=== PATIENT | female | born 1925 | race Caucasian/White ===

== ENCOUNTER 2017-05-14 15:35 | Inpatient (IN) | payer MEDICARE ==
[2017-05-14] MEDS ORDERED: SODIUM CHLORIDE 0.9% 500 ML IV STA (15:51)
[2017-05-14] MEDS ORDERED: MORPHINE SULFATE 4 MG/ML SYRINGE IV STA (15:51)
[2017-05-14] MEDS ORDERED: ONDANSETRON 4 MG/2 ML VIAL IVP STA (15:51)
[2017-05-14] MEDS ORDERED: SODIUM CHLORIDE 0.9% 1,000 ML IV STA (15:51)
--- NOTE | 2017-05-14 16:05 | ED ---
General Adult HPI - General Chief complaint: Altered Mental Status Stated complaint: Arrhythmia Time Seen by Provider: 05/14/17 15:44 Source: EMS, RN notes reviewed, old records reviewed Mode of arrival: EMS Limitations: altered mental status - History of Present Illness Initial comments: This is a 89-year-old female ER for evaluation. Patient has a for evaluation of altered mental status episode of near syncope and decreased level of responsiveness. Patient was started new blood pressure medication today clonidine. Patient is poor historian to what happened to her earlier today but EMS states patient was diaphoretic with abdominal pain upon arrival. Patient is currently complaining of pain in her back. Patient states she was feeling normal last night, she has nauseous and has vomited - Related Data Home Medications Medication Instructions Recorded Confirmed Ascorbic Acid [Vitamin C] 500 mg PO DAILY 05/14/17 05/14/17 Calcium/Magnesium/Zinc 1 tab PO DAILY 05/14/17 05/14/17 [Qmmigwy-Rynuphmdm-Ffhn Tablet] Clopidogrel Bisulfate [Plavix] 75 mg PO DAILY 05/14/17 05/14/17 Hydrochlorothiazide 12.5 mg PO DAILY 05/14/17 05/14/17 Lisinopril 40 mg PO DAILY 05/14/17 05/14/17 Metoprolol Tartrate [Lopressor] 25 mg PO BID 05/14/17 05/14/17 Pantoprazole Sodium [Protonix] 40 mg PO DAILY 05/14/17 05/14/17 Papaya [Papaya Enzyme] 1 tab PO HS 05/14/17 05/14/17 Vit C/E/Zn/Coppr/Lutein/Zeaxan 1 cap PO DAILY 05/14/17 05/14/17 [Preservision Areds 2 Softgel] cloNIDine HCL [Catapres] 0.1 mg PO BID 05/14/17 05/14/17 Allergies Allergy/AdvReac Type Severity Reaction Status Date / Time No Known Allergies Allergy Verified 05/14/17 16:41 Review of Systems ROS Statement: Those systems with pertinent positive or pertinent negative responses have been documented in the HPI. ROS Other: All systems not noted in ROS Statement are negative. Past Medical History Past Medical History: GERD/Reflux, Hypertension History of Any Multi-Drug Resistant Organisms: None Reported Past Surgical History: Hysterectomy, Orthopedic Surgery Past Psychological History: No Psychological Hx Reported Smoking Status: Never smoker Past Alcohol Use History: None Reported Past Drug Use History: None Reported General Exam Limitations: altered mental status General appearance: alert, in no apparent distress Head exam: Present: atraumatic, normocephalic, normal inspection Eye exam: Present: normal appearance, PERRL, EOMI. Absent: scleral icterus, conjunctival injection, periorbital swelling ENT exam: Present: normal exam, mucous membranes moist Neck exam: Present: normal inspection. Absent: tenderness, meningismus, lymphadenopathy Respiratory exam: Present: normal lung sounds bilaterally. Absent: respiratory distress, wheezes, rales, rhonchi, stridor Cardiovascular Exam: Present: normal rhythm, bradycardia, normal heart sounds. Absent: systolic murmur, diastolic murmur, rubs, gallop, clicks GI/Abdominal exam: Present: soft, normal bowel sounds. Absent: distended, tenderness, guarding, rebound, rigid Extremities exam: Present: normal inspection, full ROM, normal capillary refill. Absent: tenderness, pedal edema, joint swelling, calf tenderness Back exam: Present: normal inspection Neurological exam: Present: alert, oriented X3, CN II-XII intact Psychiatric exam: Present: normal affect, normal mood Skin exam: Present: warm, dry, intact, normal color. Absent: rash Course Vital Signs 05/14/17 05/14/17 15:38 16:50 Temperature 97 F L Pulse Rate 52 L 52 L Respiratory 12 18 Rate Blood Pressure 170/74 198/84 O2 Sat by Pulse 95 99 Oximetry - Reevaluation(s) Reevaluation #1: 05/14/17 19:00 Patient is without syncope borderline here in the emergency room, feeling better with IV hydration EKG Findings - EKG Comments: EKG Findings:: EKG shows sinus bradycardia rate of 56, pO2 92, QRS 170, QTC 494 Medical Decision Making - Medical Decision Making 89 female in the ER for evaluation. Patient comes in for ER for reevaluation status post syncopal event after elevated blood pressure. Patient has a elevated blood pressure all did take clonidine which is a new medication for her and passed out. Patient this time is relatively symptomatic mildly dehydrated with urinary tract infection, we will that for the above. - Lab Data Result diagrams: 05/14/17 15:58 05/14/17 15:58 Lab Results 09/27/17 09/27/17 09/27/17 Range/Units 15:58 15:58 15:58 WBC 6.2 (3.8-10.6) k/uL RBC 4.13 (3.80-5.40) m/uL Hgb 11.8 (11.4-16.0) gm/dL Hct 35.4 (34.0-46.0) % MCV 85.9 (80.0-100.0) fL MCH 28.6 (25.0-35.0) pg MCHC 33.3 (31.0-37.0) g/dL RDW 14.3 (11.5-15.5) % Plt Count 211 (150-450) k/uL Neutrophils % 52 % Lymphocytes % 33 % Monocytes % 10 % Eosinophils % 2 % Basophils % 0 % Neutrophils # 3.2 (1.3-7.7) k/uL Lymphocytes # 2.0 (1.0-4.8) k/uL Monocytes # 0.6 (0-1.0) k/uL Eosinophils # 0.1 (0-0.7) k/uL Basophils # 0.0 (0-0.2) k/uL PT (9.0-12.0) sec INR (<1.2) APTT (22.0-30.0) sec D-Dimer (<0.60) mg/L FEU Sodium 127 L (137-145) mmol/L Potassium 3.7 (3.5-5.1) mmol/L Chloride 93 L (98-107) mmol/L Carbon Dioxide 24 (22-30) mmol/L Anion Gap 10 mmol/L BUN 14 (7-17) mg/dL Creatinine 0.75 (0.52-1.04) mg/dL Est GFR (MDRD) Af Amer >60 (>60 ml/min/1.73 sqM) Est GFR (MDRD) Non-Af >60 (>60 ml/min/1.73 sqM) Glucose 109 H (74-99) mg/dL Plasma Lactic Acid Ash (0.7-2.0) mmol/L Calcium 9.0 (8.4-10.2) mg/dL Phosphorus 3.6 (2.5-4.5) mg/dL Magnesium 1.8 (1.6-2.3) mg/dL Total Bilirubin 0.7 (0.2-1.3) mg/dL AST 25 (14-36) U/L ALT 24 (9-52) U/L Alkaline Phosphatase 42 (38-126) U/L Total Creatine Kinase 71 (30-135) U/L CK-MB (CK-2) 1.8 (0.0-2.4) ng/mL CK-MB (CK-2) Rel Index 2.5 Troponin I <0.012 (0.000-0.034) ng/mL NT-Pro-B Natriuret Pep pg/mL Total Protein 6.6 (6.3-8.2) g/dL Albumin 4.0 (3.5-5.0) g/dL Lipase 23 (23-300) U/L Urine Color Urine Appearance (Clear) Urine pH (5.0-8.0) Ur Specific Drummond (1.001-1.035) Urine Protein (Negative) Urine Glucose (UA) (Negative) Urine Ketones (Negative) Urine Blood (Negative) Urine Nitrite (Negative) Urine Bilirubin (Negative) Urine Urobilinogen (<2.0) mg/dL Ur Leukocyte Esterase (Negative) Urine RBC (0-5) /hpf Urine WBC (0-5) /hpf Ur Squamous Epith Cells (0-4) /hpf Amorphous Sediment (None) /hpf Hyaline Casts (0-2) /lpf 05/14/17 05/14/17 05/14/17 Range/Units 15:58 15:58 15:58 WBC (3.8-10.6) k/uL RBC (3.80-5.40) m/uL Hgb (11.4-16.0) gm/dL Hct (34.0-46.0) % MCV (80.0-100.0) fL MCH (25.0-35.0) pg MCHC (31.0-37.0) g/dL RDW (11.5-15.5) % Plt Count (150-450) k/uL Neutrophils % % Lymphocytes % % Monocytes % % Eosinophils % % Basophils % % Neutrophils # (1.3-7.7) k/uL Lymphocytes # (1.0-4.8) k/uL Monocytes # (0-1.0) k/uL Eosinophils # (0-0.7) k/uL Basophils # (0-0.2) k/uL PT 11.6 (9.0-12.0) sec INR 1.2 H (<1.2) APTT 25.2 (22.0-30.0) sec D-Dimer 0.27 (<0.60) mg/L FEU Sodium (137-145) mmol/L Potassium (3.5-5.1) mmol/L Chloride (98-107) mmol/L Carbon Dioxide (22-30) mmol/L Anion Gap mmol/L BUN (7-17) mg/dL Creatinine (0.52-1.04) mg/dL Est GFR (MDRD) Af Amer (>60 ml/min/1.73 sqM) Est GFR (MDRD) Non-Af (>60 ml/min/1.73 sqM) Glucose (74-99) mg/dL Plasma Lactic Acid Ash 1.6 (0.7-2.0) mmol/L Calcium (8.4-10.2) mg/dL Phosphorus (2.5-4.5) mg/dL Magnesium (1.6-2.3) mg/dL Total Bilirubin (0.2-1.3) mg/dL AST (14-36) U/L ALT (9-52) U/L Alkaline Phosphatase (38-126) U/L Total Creatine Kinase (30-135) U/L CK-MB (CK-2) (0.0-2.4) ng/mL CK-MB (CK-2) Rel Index Troponin I (0.000-0.034) ng/mL NT-Pro-B Natriuret Pep 811 pg/mL Total Protein (6.3-8.2) g/dL Albumin (3.5-5.0) g/dL Lipase (23-300) U/L Urine Color Urine Appearance (Clear) Urine pH (5.0-8.0) Ur Specific Drummond (1.001-1.035) Urine Protein (Negative) Urine Glucose (UA) (Negative) Urine Ketones (Negative) Urine Blood (Negative) Urine Nitrite (Negative) Urine Bilirubin (Negative) Urine Urobilinogen (<2.0) mg/dL Ur Leukocyte Esterase (Negative) Urine RBC (0-5) /hpf Urine WBC (0-5) /hpf Ur Squamous Epith Cells (0-4) /hpf Amorphous Sediment (None) /hpf Hyaline Casts (0-2) /lpf 05/14/17 Range/Units 15:58 WBC (3.8-10.6) k/uL RBC (3.80-5.40) m/uL Hgb (11.4-16.0) gm/dL Hct (34.0-46.0) % MCV (80.0-100.0) fL MCH (25.0-35.0) pg MCHC (31.0-37.0) g/dL RDW (11.5-15.5) % Plt Count (150-450) k/uL Neutrophils % % Lymphocytes % % Monocytes % % Eosinophils % % Basophils % % Neutrophils # (1.3-7.7) k/uL Lymphocytes # (1.0-4.8) k/uL Monocytes # (0-1.0) k/uL Eosinophils # (0-0.7) k/uL Basophils # (0-0.2) k/uL PT (9.0-12.0) sec INR (<1.2) APTT (22.0-30.0) sec D-Dimer (<0.60) mg/L FEU Sodium (137-145) mmol/L Potassium (3.5-5.1) mmol/L Chloride (98-107) mmol/L Carbon Dioxide (22-30) mmol/L Anion Gap mmol/L BUN (7-17) mg/dL Creatinine (0.52-1.04) mg/dL Est GFR (MDRD) Af Amer (>60 ml/min/1.73 sqM) Est GFR (MDRD) Non-Af (>60 ml/min/1.73 sqM) Glucose (74-99) mg/dL Plasma Lactic Acid Ash (0.7-2.0) mmol/L Calcium (8.4-10.2) mg/dL Phosphorus (2.5-4.5) mg/dL Magnesium (1.6-2.3) mg/dL Total Bilirubin (0.2-1.3) mg/dL AST (14-36) U/L ALT (9-52) U/L Alkaline Phosphatase (38-126) U/L Total Creatine Kinase (30-135) U/L CK-MB (CK-2) (0.0-2.4) ng/mL CK-MB (CK-2) Rel Index Troponin I (0.000-0.034) ng/mL NT-Pro-B Natriuret Pep pg/mL Total Protein (6.3-8.2) g/dL Albumin (3.5-5.0) g/dL Lipase (23-300) U/L Urine Color Yellow Urine Appearance Clear (Clear) Urine pH 7.0 (5.0-8.0) Ur Specific Drummond 1.008 (1.001-1.035) Urine Protein Negative (Negative) Urine Glucose (UA) Negative (Negative) Urine Ketones Negative (Negative) Urine Blood Negative (Negative) Urine Nitrite Negative (Negative) Urine Bilirubin Negative (Negative) Urine Urobilinogen <2.0 (<2.0) mg/dL Ur Leukocyte Esterase Large H (Negative) Urine RBC 5 (0-5) /hpf Urine WBC 50 H (0-5) /hpf Ur Squamous Epith Cells <1 (0-4) /hpf Amorphous Sediment Rare H (None) /hpf Hyaline Casts 1 (0-2) /lpf - Radiology Data Radiology results: report reviewed (Chest x-ray is negative for acute disease), image reviewed Disposition Clinical Impression: Altered mental status, Syncope, Dehydration, UTI (urinary tract infection) Disposition: ADMITTED IP TO THIS [facility] Condition: Fair Referrals: Tito Tolentino MD [Primary Care Provider] - 1-2 days
[2017-05-14 16:11] LABS: Basophils % (A) 0 %; CH 30.1; CHCM 35.2; Eosinophils # (A) 0.1 k/uL (0-0.7); Eosinophils % (A) 2 %; HCT 35.4 % (34.0-46.0); HDW 2.51; HGB 11.8 gm/dL (11.4-16.0); Luc # (Auto) 0.17; Luc % (Auto) 3; Lymphocytes % (A) 33 %; MCH 28.6 pg (25.0-35.0); MCHC 33.3 g/dL (31.0-37.0); MCV 85.9 fL (80.0-100.0); Mean Platelet Volume 7.1; Monocytes # (A) 0.6 k/uL (0-1.0); Monocytes % (A) 10 %; Neutrophils # (A) 3.2 k/uL (1.3-7.7); Neutrophils % (A) 52 %; RBC 4.13 m/uL (3.80-5.40); RDW 14.3 % (11.5-15.5); WBC 6.2 k/uL (3.8-10.6); WBC (Perox) 6.64
[2017-05-14 16:30] LABS: ALT 24 U/L (9-52); AST 25 U/L (14-36); Alkaline Phosphatase 42 U/L (38-126); Anion Gap 10 mmol/L; Blood Urea Nitrogen 14 mg/dL (7-17); Carbon Dioxide 24 mmol/L (22-30); Chloride 93 mmol/L (98-107); Glucose 109 mg/dL (74-99); Magnesium 1.8 mg/dL (1.6-2.3); Non-African American GFR(MDRD) >60 (>60 ml/min/1.73 sqM); Phosphorous 3.6 mg/dL (2.5-4.5); Potassium 3.7 mmol/L (3.5-5.1); Sodium 127 mmol/L (137-145); Total Bilirubin 0.7 mg/dL (0.2-1.3); Total Protein 6.6 g/dL (6.3-8.2)
[2017-05-14 16:31] LABS: INR 1.2 (<1.2); Partial Thromboplastin Time 25.2 sec (22.0-30.0); Prothrombin Time 11.6 sec (9.0-12.0)
[2017-05-14 16:37] LABS: Creatine Kinase 71 U/L (30-135)
--- NOTE | 2017-05-14 16:38 | XR ---
EXAMINATION TYPE: XR chest 2V DATE OF EXAM: 05/14/2017 COMPARISON: 11/23/2012 HISTORY: Altered mental status. Vomiting. Weakness. TECHNIQUE: Frontal and lateral views of the chest are obtained. FINDINGS: There is coarsening of interstitial markings. There is no heart failure. Heart is enlarged . Thoracic aorta is atheromatous. Bony thorax shows 50% anterior wedging of T5. There is probably a s mall infiltrate at the lateral left lung base. IMPRESSION: Pulmonary fibrosis. Cardiomegaly. Old T5 compression fracture. There is evidence for new pneumonia in the lateral basal segment left lower lobe.
[2017-05-14 16:50] LABS: Creatine Kinase MB 1.8 ng/mL (0.0-2.4); Troponin I <0.012 ng/mL (0.000-0.034)
[2017-05-14 17:24] LABS: Amorphous Sediment,Urine Rare /hpf; Appearance,Urine Clear (Clear); Bilirubin,Urine Negative (Negative); Glucose,Urine (UA) Negative (Negative); Ketones,Urine Negative (Negative); Leukocyte Esterase,Urine Large (Negative); Nitrite,Urine Negative (Negative); Particle Count 1169; Protein,Urine Negative (Negative); RBC,Urine 5 /hpf (0-5); Specific Gravity,Urine 1.008 (1.001-1.035); Squamous Epithelial Cell,Urine <1 /hpf (0-4); UA Billing (MACRO vs. MICRO) MICRO; Urobilinogen,Urine <2.0 mg/dL (<2.0); WBC,Urine 50 /hpf (0-5)
[2017-05-14] MEDS ORDERED: MORPHINE SULFATE 4 MG/ML SYRINGE IV PRN (19:01)
[2017-05-14] MEDS ORDERED: NITROGLYCERIN SL TABS 0.4 MG TAB SUBLINGUAL PRN (19:01)
[2017-05-14 21:17] VITALS: BMI 23.9
[2017-05-14 21:57] LABS: Creatine Kinase 67 U/L (30-135)
[2017-05-14 22:11] LABS: Troponin I <0.012 ng/mL (0.000-0.034)
[2017-05-15] MEDS: ACETAMINOPHEN TAB 325 MG TAB PO PRN ×2 (01:53→22:27)
[2017-05-15 04:13] LABS: Cholesterol 163 mg/dL (<200); HDL Cholesterol 49 mg/dL (40-60)
[2017-05-15 04:23] LABS: Creatine Kinase 62 U/L (30-135)
[2017-05-15 04:37] LABS: Creatine Kinase MB 1.8 ng/mL (0.0-2.4); Troponin I <0.012 ng/mL (0.000-0.034)
[2017-05-15] MEDS: ASPIRIN 325 MG TAB PO SCH (08:18)
[2017-05-15] MEDS: ENOXAPARIN 40 MG/0.4 ML SYRINGE SQ SCH (08:18)
--- NOTE | 2017-05-15 10:49 | P.HPIM ---
History of Present Illness 89-year-old female presented to family physician office 2 days ago with blood pressure of 220/114. Patient was asymptomatic at that time after rest improved to 194/104. Was started on hydrochlorothiazide 12.5 once daily. Patient was given evening dose and then morning dose return to the office continue the same hypertension. Family was instructed to give her Catapres 0.1 if blood pressure over 180. Patient then become became hypotensive and transferred to the emergency room. Patient was then admitted for evaluation found to have urinary tract infection dehydration patient had baseline this morning Review of Systems Constitutional: Reports sweats Cardiovascular: Reports high blood pressure Past Medical History Past Medical History: CVA/TIA, GERD/Reflux, Hypertension Additional Past Medical History / Comment(s): shingles,neuropathy,abcess tooth History of Any Multi-Drug Resistant Organisms: None Reported Past Surgical History: Adenoidectomy, Hysterectomy, Orthopedic Surgery, Tonsillectomy Additional Past Surgical History / Comment(s): left shoulder surgery Past Psychological History: No Psychological Hx Reported Smoking Status: Never smoker Past Alcohol Use History: None Reported Past Drug Use History: None Reported Medications and Allergies Home Medications Medication Instructions Recorded Confirmed Type Ascorbic Acid [Vitamin C] 500 mg PO DAILY 05/14/17 05/14/17 History Calcium/Magnesium/Zinc 1 tab PO DAILY 05/14/17 05/14/17 History [Pdnimqn-Snnyhbpvc-Uwfz Tablet] Clopidogrel Bisulfate [Plavix] 75 mg PO DAILY 05/14/17 05/14/17 History Hydrochlorothiazide 12.5 mg PO DAILY 05/14/17 05/14/17 History Lisinopril 40 mg PO DAILY 05/14/17 05/14/17 History Metoprolol Tartrate [Lopressor] 25 mg PO BID 05/14/17 05/14/17 History Pantoprazole Sodium [Protonix] 40 mg PO DAILY 05/14/17 05/14/17 History Papaya [Papaya Enzyme] 1 tab PO HS 05/14/17 05/14/17 History Vit C/E/Zn/Coppr/Lutein/Zeaxan 1 cap PO DAILY 05/14/17 05/14/17 History [Preservision Areds 2 Softgel] cloNIDine HCL [Catapres] 0.1 mg PO BID 05/14/17 05/14/17 History Allergies Allergy/AdvReac Type Severity Reaction Status Date / Time No Known Allergies Allergy Verified 05/14/17 16:41 Physical Exam Vitals: Vital Signs Temp Pulse Pulse Resp BP BP Pulse Ox 05/15/17 07:00 97.0 F L 52 L 20 141/91 99 05/14/17 23:00 97.3 F L 60 16 150/69 96 05/14/17 21:15 97.0 F L 60 16 166/93 99 05/14/17 19:00 57 L 18 162/71 96 05/14/17 18:00 54 L 18 188/79 94 L 05/14/17 16:50 52 L 18 198/84 99 05/14/17 15:38 97 F L 52 L 12 170/74 95 Intake and Output 05/14/17 05/15/17 05/15/17 22:59 06:59 14:59 Intake Total 1000 Balance 1000 Intake: Amount of Fluid Infused ( 1000 ml) Other: Voiding Method Toilet # Voids 2 4 Weight 71.5 kg - Constitutional General appearance: average body habitus - EENT Eyes: PERRLA Ears: bilateral: normal - Neck Neck: normal ROM - Respiratory Respiratory: bilateral: CTA - Cardiovascular Rhythm: regular - Gastrointestinal General gastrointestinal: soft - Integumentary Integumentary: normal - Neurologic Neurologic: CNII-XII intact - Musculoskeletal Patient awake and alert and mildly confused. This is patient's baseline Musculoskeletal: gait normal Results CBC & Chem 7: 05/14/17 15:58 05/14/17 15:58 Labs: Abnormal Lab Results - Last 24 Hours (Table) 05/14/17 05/14/17 05/14/17 Range/Units 15:58 15:58 15:58 INR 1.2 H (<1.2) Sodium 127 L (137-145) mmol/L Chloride 93 L (98-107) mmol/L Glucose 109 H (74-99) mg/dL Ur Leukocyte Esterase Large H (Negative) Urine WBC 50 H (0-5) /hpf Amorphous Sediment Rare H (None) /hpf Microbiology - Last 24 Hours (Table) 05/14/17 15:58 Urine Culture - Preliminary Urine,Voided Thrombosis Risk Factor Assmnt - Choose All That Apply Any of the Below Risk Factors Present?: No Other Risk Factors: Yes Each Risk Factor Represents 3 Points: Age 75 years or older Other congenital or acquired thrombophilia - If yes, enter type in comment: No Thrombosis Risk Factor Assessment Total Risk Factor Score: 3 Thrombosis Risk Factor Assessment Level: Moderate Risk Assessment and Plan Plan: Assessment Altered mental status of the syncope secondary to hypotension Hypertension history History of CVA TIA History of GERD dehydration Urinary tract infection Plan Restarted metoprolol and lisinopril held hydrochlorothiazide and Catapres Treated with Keflex for urinary tract infection
[2017-05-15] MEDS: CEPHALEXIN 500 MG CAP PO SCH ×3 (13:30→22:20)
[2017-05-15] MEDS ORDERED: PAPAYA PO SCH (21:00)
[2017-05-16] MEDS: PANTOPRAZOLE 40 MG TABLET PO SCH (08:24)
[2017-05-16] MEDS: ASCORBIC ACID 500 MG TAB PO SCH (08:24)
[2017-05-16] MEDS: ASPIRIN 325 MG TAB PO SCH (08:24)
[2017-05-16] MEDS: CEPHALEXIN 500 MG CAP PO SCH ×4 (08:25→21:15)
[2017-05-16] MEDS: VIT A,C & E-LUTEIN-MINERALS 1 EACH TAB PO SCH (08:25)
[2017-05-16] MEDS: ENOXAPARIN 40 MG/0.4 ML SYRINGE SQ SCH (08:25)
[2017-05-16] MEDS: LISINOPRIL 20 MG TAB PO SCH (08:26)
[2017-05-16] MEDS: METOPROLOL TARTRATE 25 MG TAB PO SCH (08:26)
[2017-05-16] MEDS ORDERED: CLOPIDOGREL 75 MG TAB PO SCH (09:00)
[2017-05-16] MEDS ORDERED: NON-FORMULARY DRUG (Calcium/Magnesium/Zinc [Calcium-Magnesium-Zinc Tablet] 1 TAB) PO SCH (09:00)
[2017-05-16] MEDS: ACETAMINOPHEN TAB 325 MG TAB PO PRN (16:07)
--- NOTE | 2017-05-16 18:17 | PN ---
PROGRESS NOTE DATE OF SERVICE: 05/16/2017 I am covering for Dr. Tolentino. INTERVAL HISTORY: This 89-year-old woman who was admitted with change in mental status, as well as possibly hypotension also had hypertensive urgency also, the patient being closely monitored. There is no history of CVA/TIA also. However, the most recent CT scan was not available. PAST MEDICAL HISTORY: Reviewed. REVIEW OF SYSTEMS: Cardiovascular: No angina or palpitations. Respiratory: As mentioned earlier. GI as mentioned earlier. : No dysuria. Central nervous system: No focal deficits. CURRENT MEDICATIONS: Reviewed and include: 1. Tylenol 650 q.6h p.r.n. 2. Vitamin C 500 mg. 3. Aspirin 320 mg daily. 4. Keflex 500 mg p.o. q.h.s. 5. Lovenox 40 mg subcutaneously daily. 6. Zestril 40 mg p.o. daily. 7. Lopressor 25 mg p.o. daily. 8. Morphine 4 mg IV q.4h p.r.n. 9. Multivitamins. 10.Nitrostat 0.4 sublingual. 11.Protonix 40 mg daily. PHYSICAL EXAMINATION: Patient is alert, oriented times three. Pulse is 78, blood pressure 195/82, respirations 16, temp 97 degrees, pulse ox 98% on room air. HEENT: Conjunctivae normal. Neck: No jugular venous distention. Cardiovascular: S1, S2 muffled. Respiratory: Breath sounds diminished in the bases. A few scattered rhonchi and crackles. Abdomen soft. Nontender. No mass palpable. Legs: No edema. Central nervous system: No focal deficits. LAB STUDIES: CBC within normal limits. Sodium 127. Otherwise, UA showed UTI. ASSESSMENT: 1. Change in mental status, syncope secondary to hypotension, present on admission. 2. Hypertension. 3. Hypertensive urgency. 4. History of cerebrovascular accident, transient ischemic attack. 5. Urinary tract infection. 6. Dehydration. 7. History of gastroesophageal reflux disease. 8. Hyponatremia. RECOMMENDATIONS AND DISCUSSION: 1. Recommend to continue current management and continue symptomatic treatment. Monitor closely. 2. Monitor blood pressure medications will be reviewed. 3. Guarded prognosis. 4. Further recommendations to follow. MMODL / IJN: [id number] /
[2017-05-17] MEDS ORDERED: hydrALAZINE HCL 20 MG/ML 1 ML VIAL IVP PRN (00:57)
[2017-05-17 02:35] LABS: Glucose,Whole Blood 109 mg/dL (75-99)
[2017-05-17 03:15] LABS: Basophils % (A) 1 %; CHCM 34.6; Eosinophils # (A) 0.1 k/uL (0-0.7); Eosinophils % (A) 1 %; HCT 38.6 % (34.0-46.0); HDW 2.54; HGB 12.8 gm/dL (11.4-16.0); Luc # (Auto) 0.15; Luc % (Auto) 2; Lymphocytes # (A) 2.4 k/uL (1.0-4.8); Lymphocytes % (A) 30 %; MCH 28.9 pg (25.0-35.0); MCHC 33.2 g/dL (31.0-37.0); MCV 87.1 fL (80.0-100.0); Mean Platelet Volume 6.9; Monocytes # (A) 0.6 k/uL (0-1.0); Monocytes % (A) 8 %; Neutrophils # (A) 4.6 k/uL (1.3-7.7); Neutrophils % (A) 58 %; RBC 4.43 m/uL (3.80-5.40); RDW 14.1 % (11.5-15.5); WBC 7.9 k/uL (3.8-10.6); WBC (Perox) 8.45
[2017-05-17 03:32] LABS: Anion Gap 13 mmol/L; Blood Urea Nitrogen 11 mg/dL (7-17); Calcium 9.7 mg/dL (8.4-10.2); Carbon Dioxide 24 mmol/L (22-30); Chloride 100 mmol/L (98-107); Glucose 101 mg/dL (74-99); Non-African American GFR(MDRD) >60 (>60 ml/min/1.73 sqM); Potassium 3.4 mmol/L (3.5-5.1); Sodium 137 mmol/L (137-145)
[2017-05-17] MEDS: ACETAMINOPHEN TAB 325 MG TAB PO PRN (04:09)
[2017-05-17] MEDS: CEPHALEXIN 500 MG CAP PO SCH ×4 (08:17→20:45)
[2017-05-17] MEDS: ENOXAPARIN 40 MG/0.4 ML SYRINGE SQ SCH (08:17)
[2017-05-17] MEDS: VIT A,C & E-LUTEIN-MINERALS 1 EACH TAB PO SCH (08:19)
[2017-05-17] MEDS: LISINOPRIL 20 MG TAB PO SCH (08:20)
[2017-05-17] MEDS: ASPIRIN 325 MG TAB PO SCH (08:20)
[2017-05-17] MEDS: PANTOPRAZOLE 40 MG TABLET PO SCH (08:20)
[2017-05-17] MEDS: ASCORBIC ACID 500 MG TAB PO SCH (08:20)
[2017-05-17] MEDS: METOPROLOL TARTRATE 25 MG TAB PO SCH ×2 (08:20→20:46)
[2017-05-17] MEDS ORDERED: Potassium Replacement Protocol 1 EACH MISC MISCELLANE PRN (12:38)
[2017-05-17] MEDS: POTASSIUM CHLORIDE 10 MEQ, LIDOCAINE 2% INJ 10 MG in SODIUM CHLORIDE 0.9% 100 ML IV SCH ×2 (15:01→15:26)
--- NOTE | 2017-05-17 15:21 | CONS ---
CONSULTATION ATTENDING: Dr. Tito Tolentino. Mrs. Durbin is an 89-year-old female who presented with symptoms of changed mental status and fatigue. She as an outpatient was noted to have an elevation of her blood pressure and subsequently clonidine and hydrochlorothiazide was added to her regimen. Apparently, she became hypotensive and unresponsive and there was a question of UTI on presentation. Cardiology consultation was requested because of episodes of tachycardia. The patient feels some palpitation on and off, but not persistent. She denies any associated dizziness or syncope. She denies any associated chest discomfort. She has no significant dyspnea on exertion. No peripheral edema. No PND or orthopnea. She denies any prior cardiac history. On the monitor, she is in sinus mechanism with an episode that appears to be presenting short bursts of A. fib. or SVT. She has underlying left bundle branch block. There are frequent PACs on the tracings. The patient did not feel the palpitation this morning. Her coronary risk factors are remarkable for hypertension. She is nondiabetic and nonsmoker. Her lipid profile is not available. MEDICATIONS AT HOME: Include: 1. Clonidine. 2. Aspirin. 3. Metoprolol tartrate 25 mg twice a day. 4. Lisinopril 40 mg daily. 5. Plavix 75 mg daily. 6. Protonix and. 7. Vitamins. REVIEW OF SYSTEMS: RESPIRATORY: No recent wheezing. No cough. No history of documented obstructive lung disease with dyspnea on exertion. No recent fever. GI: No recent GI bleeding. No peptic ulcer disease. : No dysuria or hematuria. NERVOUS: No history of stroke or seizure. It is unclear to me why she is on Plavix. PHYSICAL EXAMINATION: She is a an 89-year-old female; alert, oriented, in no apparent distress. Blood pressure 155/70 with a heart rate in 70s. HEAD: Normocephalic. EYES: Sclerae anicteric. NECK: Good carotid upstroke. No bruits. LUNGS: Clear to auscultation. HEART: Regular rate and rhythm. S1, S2. No S3 with systolic murmur at the base. No diastolic murmur. No rub. ABDOMEN: Soft, nontender. Positive bowel sounds. No organomegaly. EXTREMITIES: No edema. LAB DATA: Revealed potassium 3.4, BUN and creatinine of 11 and 0.6. Hemoglobin is 12.8, white blood cell 7.9. Troponin less than 0.012. Cholesterol 163, LDL of 95. EKG revealed a sinus mechanism, rate 56, 1st-degree AV block, left bundle branch block with left axis deviation. IMPRESSION: 1. Atrial arrhythmia was possible short bursts of atrial fibrillation. Patient probably has sick sinus syndrome. 2. History of hypertension. 3. Possible urinary tract infection. RECOMMENDATION: From the cardiac standpoint, I will increase the dose of her beta-jaxon back to 25 mg twice a day. I will avoid the clonidine. Will obtain echocardiogram and Doppler, obtain a thyroid function test. I have discussed with the patient that she may be a candidate for a pacemaker, but she does not appear to be interested in any aggressive workup. Depending on her progress, further recommendations will be made. Thank you for this consult. We will follow with you. ELLIOTL / IJN: [id number] /
--- NOTE | 2017-05-17 18:18 | PN ---
PROGRESS NOTE DATE OF SERVICE: 05/17/2017 I am covering for Dr. Tolentino. HISTORY: This 89-year-old woman was admitted with change in mental status and syncope, also had PVCs as well as irregular cardiac rhythm. The patient has wide-complex QRS complexes. The rhythm strip last night showed questionable supraventricular tachycardia. The patient is being closely monitored. Beta blockers have been initiated. No chest pain. No palpitations. No fever. EXAM: GENERAL: Alert, oriented x3. VITAL SIGNS: Pulse 60, blood pressure 185/87, respirations 16, temperature 98 degrees, pulse ox 97% on room air. HEENT: Conjunctivae normal. NECK: Supple. No JVD. CARDIOVASCULAR: S1 and S2 muffled. No S3 or S4. LUNGS: Breath sounds diminished at the bases. No rhonchi. No crackles. ABDOMEN: Soft, nontender. No masses palpable. LABS: CBC within normal, sodium 139, potassium 3.4, magnesium 1.9. TSH is 2.66. ASSESSMENT: 1. Change in mental status, syncope, secondary to hypotension, present on admission. 2. Atrial arrhythmia, possibly supraventricular tachycardia or paroxysmal atrial fibrillation with wide-complex QRS complexes. 3. Baseline left bundle branch block. 4. Hypertension. 5. Hypertensive urgency. 6. History of cerebrovascular accident, transient ischemic attack. 7. Urinary tract infection. 8. Dehydration history. 9. Gastroesophageal reflux disease. 10.Hyponatremia. RECOMMENDATIONS: Recommend to continue current symptomatic treatment. Otherwise continue with beta blockers. Closely monitor with Cardiology. Increase ambulation. I would also recommend orthostatic vitals also. Further recommendations to follow. Prognosis guarded. MMODL / IJN: [id number] /
[2017-05-17] MEDS ORDERED: cloNIDine HCL 0.1 MG TAB PO SCH (21:00)
[2017-05-18 08:07] LABS: Anion Gap 10 mmol/L; Blood Urea Nitrogen 23 mg/dL (7-17); Calcium 9.6 mg/dL (8.4-10.2); Carbon Dioxide 27 mmol/L (22-30); Chloride 100 mmol/L (98-107); Glucose 100 mg/dL (74-99); Non-African American GFR(MDRD) >60 (>60 ml/min/1.73 sqM); Potassium 4.2 mmol/L (3.5-5.1); Sodium 137 mmol/L (137-145)
[2017-05-18] MEDS: ASPIRIN 325 MG TAB PO SCH (10:11)
[2017-05-18] MEDS: CEPHALEXIN 500 MG CAP PO SCH ×4 (10:11→21:00)
[2017-05-18] MEDS: VIT A,C & E-LUTEIN-MINERALS 1 EACH TAB PO SCH (10:11)
[2017-05-18] MEDS: ENOXAPARIN 40 MG/0.4 ML SYRINGE SQ SCH (10:11)
[2017-05-18] MEDS: PANTOPRAZOLE 40 MG TABLET PO SCH (10:12)
[2017-05-18] MEDS: LISINOPRIL 20 MG TAB PO SCH (10:12)
[2017-05-18] MEDS: METOPROLOL TARTRATE 25 MG TAB PO SCH ×2 (10:13→21:00)
[2017-05-18] MEDS: ASCORBIC ACID 500 MG TAB PO SCH (10:13)
--- NOTE | 2017-05-18 12:57 | ECHOF ---
Referral Reason:htn MEASUREMENTS -------- HEIGHT: 172.7 cm WEIGHT: 71.2 kg BP: 155/74 RVIDd: 3.2 cm (< 3.3) IVSd: 1.3 cm (0.6 - 1.1) LVIDd: 5.3 cm (3.9 - 5.3) LVPWd: 1.2 cm (0.6 - 1.1) IVSs: 1.9 cm LVIDs: 3.2 cm LVPWs: 1.7 cm LA Diam: 3.9 cm (2.7 - 3.8) LAESV Index (A-L): 22.12 ml/m Ao Diam: 3.5 cm (2.0 - 3.7) AV Cusp: 1.5 cm (1.5 - 2.6) MV EXCURSION: 10.065 mm (> 18.000) MV EF SLOPE: 19 mm/s (70 - 150) EPSS: 1.0 cm MV E Willard: 0.57 m/s MV DecT: 623 ms MV A Willard: 1.05 m/s MV E/A Ratio: 0.55 AV maxP.00 mmHg AV meanP.49 mmHg RAP: 5.00 mmHg RVSP: 30.35 mmHg FINDINGS -------- Sinus rhythm. This was a technically good study. The left ventricular size is normal. There is mild concentric left ventricular hypertrophy. Overall left ventricular systolic function is normal with, an EF between 55 - 60 %. The right ventricle is normal in size. Normal LA size by volume 22+/-6 ml/m2. The right atrium was not well visualized. There is mild aortic valve sclerosis. There is mild aortic regurgitation. There is mild aortic stenosis present. Peak/mean gradient across the Aortic Valve is 14.00mmHg / 8.49mmHg. Mild mitral annular calcification present. Cvuv-lq-twtnujyx mitral regurgitation is present. Mild tricuspid regurgitation present. Right ventricular systolic pressure is normal at < 35 mmHg. Trace/mild (physiologic) pulmonic regurgitation. The aortic root size is normal. Normal inferior vena cava with normal inspiratory collapse consistent with estimated right atrial pressure of 5 mmHg. There is no pericardial effusion. CONCLUSIONS -------- 1. Sinus rhythm. 2. Peak/mean gradient across the Aortic Valve is 14.00mmHg / 8.49mmHg. 3. Mild mitral annular calcification present. 4. Lndu-uy-yzgxklii mitral regurgitation is present. 5. Mild tricuspid regurgitation present. 6. Right ventricular systolic pressure is normal at < 35 mmHg. 7. Trace/mild (physiologic) pulmonic regurgitation. 8. The aortic root size is normal. 9. Normal inferior vena cava with normal inspiratory collapse consistent with estimated right atrial pressure of 5 mmHg. 10. There is no pericardial effusion. 11. This was a technically good study. 12. There is mild concentric left ventricular hypertrophy. 13. Overall left ventricular systolic function is normal with, an EF between 55 - 60 %. 14. Normal LA size by volume 22+/-6 ml/m2. 15. The right atrium was not well visualized. 16. There is mild aortic valve sclerosis. 17. There is mild aortic regurgitation. 18. There is mild aortic stenosis present. MANUFACTURING PLANNER: Belen Bowling RDCS
--- NOTE | 2017-05-18 14:22 | PN ---
PROGRESS NOTE Mrs. Durbin is an 89-year-old female who presented with change in mental status that was thought to be related to a urinary tract infection as was her medication. She had episode of tachycardia. She is feeling better since yesterday. She has no further symptoms. Her energy is better. She has no chest pain. No dizziness. No palpitations. She continues to be on metoprolol tartrate 25 mg twice a day, lisinopril 40 mg daily, aspirin once a day. PHYSICAL EXAMINATION: Blood pressure 148/70 with a heart in 60. LUNGS: Clear. HEART: Regular rate and rhythm. S1, S2. No S3 with systolic murmur at the base. No diastolic murmur. ABDOMEN: Soft, nontender. EXTREMITIES: No edema. LAB DATA: BUN and creatinine of 23 and 0.75. TSH 2.66. Troponin less than 0.012. Her echocardiogram revealed a preserved ventricular size and systolic function. IMPRESSION: 1. Hypertension. 2. Atrial tachycardia with possible short bursts of paroxysmal atrial fibrillation. 3. Possible urinary tract infection. RECOMMENDATION: We will continue present therapy. We will stay off the clonidine and increase her level activity. If we see any evidence of tachy-malaika syndrome, then a permanent pacemaker implantation may need to be considered. At this time, I see no indication for that. MMODL / IJN: [id number] /
[2017-05-19] MEDS: ACETAMINOPHEN TAB 325 MG TAB PO PRN ×3 (00:04→17:50)
[2017-05-19] MEDS: amLODIPine 5 MG TAB PO SCH ×2 (02:24→08:32)
[2017-05-19] MEDS: ENOXAPARIN 40 MG/0.4 ML SYRINGE SQ SCH (08:30)
[2017-05-19] MEDS: METOPROLOL TARTRATE 25 MG TAB PO SCH ×2 (08:31→21:09)
[2017-05-19] MEDS: PANTOPRAZOLE 40 MG TABLET PO SCH (08:31)
[2017-05-19] MEDS: CEPHALEXIN 500 MG CAP PO SCH ×4 (08:31→21:09)
[2017-05-19] MEDS: ASPIRIN 325 MG TAB PO SCH (08:31)
[2017-05-19] MEDS: ASCORBIC ACID 500 MG TAB PO SCH (08:32)
[2017-05-19] MEDS: VIT A,C & E-LUTEIN-MINERALS 1 EACH TAB PO SCH (08:32)
[2017-05-19] MEDS: LISINOPRIL 20 MG TAB PO SCH (08:32)
[2017-05-19] MEDS ORDERED: amLODIPine 5 MG TAB PO STA (10:27)
--- NOTE | 2017-05-19 11:03 | P.PN ---
Subjective Mrs Durbin is an 89-year-old female with past medical history significant for HTN. She was sent to the ED after PCP was treating uncontrolled HTN and starting new medications. She was started on clonidine and HCTZ at that time for blood pressure 220/114. Upon arrival to ED she was also found to have a UTI. We have been following with the patient for episodes of tachycardia up to 160s, per telemetry tracings this appears to be SVT. She had another episode last night around 2300. During the episode she stated she was resting in bed trying to fall asleep. She complained of right sided chest pain with radiation down her right arm during this event. These symptoms resolved on its own along with her heart rate normalized. She continues to have uncontrolled hypertension. Heart rate is in the 50-60s range with sinus mechanism on the monitor with frequent PACs. At the current time she denies chest pain, shortness of breath, palpitations, dizziness or arm pain. Her current medications include metoprolol 25 mg BID, lisinopril 40 mg daily, norvasc 5 mg daily. She does not follow with a photoengraver for any reason at the present time. Blood pressure 180/87 with a heart rate is 62. Potassium 4.2, cardiac enzymes negative, TSH 2.6. Echocardiogram performed 05/17 indicates preserved left ventricular function with ejection fraction 55-60% with mild concentric LVH. Objective - Vital Signs Vital signs: Vital Signs Temp 96.5 F L 05/19/17 07:00 Pulse 62 05/19/17 07:00 Resp 18 05/19/17 07:00 BP 188/87 05/19/17 07:00 Pulse Ox 98 05/19/17 07:00 Intake & Output 05/18/17 05/19/17 05/19/17 18:59 06:59 18:59 Intake Total 200 Output Total 800 250 Balance 200 -800 -250 Intake: Oral 200 Output: Urine 800 250 Other: Voiding Method Bedside Commode Toilet # Voids 2 - Exam GENERAL: Well-appearing, well-nourished and in no acute distress. NECK: Supple without JVD or thyromegaly. LUNGS: Breath sounds clear to auscultation bilaterally. Respiration equal and unlabored. No wheezes, rales or rhonchi. HEART: Regular rate and rhythm with systolic ejection murmur at the base, no rubs or gallops. S1 and S2 heard. EXTREMITIES: Normal range of motion, no edema. No clubbing or cyanosis. Peripheral pulses intact and strong. - Labs CBC & Chem 7: 05/17/17 02:49 05/18/17 07:22 Assessment and Plan Plan: ASSESSMENT 1. Hypertension, uncontrolled 2. Supraventricular tachycardia 3. Urinary tract infection, on antibiotic therapy. PLAN We will add amiodarone 400 mg PO BID for arrhythmia; Aspirin 81 mg PO daily; Increase norvasc to 10 mg daily, give additional dose of 5 mg now; Add hydralazine 50 mg TID; Continue lopressor and lisinopril as previously ordered. Continue with cardiac telemetry monitoring. Further recommendations will be base upon clinical course. Nurse Practitioner note has been reviewed, I agree with a documented findings and plan of care. Patient was seen and examined.
[2017-05-19] MEDS: ASPIRIN 81 MG PO SCH (11:32)
[2017-05-19] MEDS: hydrALAZINE HCL 50 MG TAB PO SCH ×3 (11:36→21:09)
[2017-05-19] MEDS: AMIODARONE 200 MG TAB PO SCH ×2 (11:37→21:09)
--- NOTE | 2017-05-19 18:17 | PN ---
PROGRESS NOTE DATE OF SERVICE: 05/18/2017 INTERVAL HISTORY: This 89-year-old woman was admitted with accelerated hypertension also had supraventricular tachycardia. No chest pain. No palpitations. No fever. Cardiology following the patient. EXAM: Alert, oriented, times three. Pulse 64, the blood pressure is 194/97, respiration 18, temperature 97.9, pulse ox 98% on room air. HEENT conjunctivae normal. Neck: No jugular venous distention. Cardiovascular system: S1, S2 muffled. Respiratory: Breath sounds diminished at the bases. No rhonchi. No crackles. Abdomen is soft, nontender. Legs: No edema. No swelling. Central nervous system: No focal deficits. LABS: Sodium 138, potassium 3.4. ASSESSMENT: 1. Change in mental status, syncope secondary to hypotension, present on admission. 2. Atrial arrhythmia possible supraventricular tachycardia. 3. Baseline left bundle branch block. 4. Hypertension. 5. Hypertensive urgency. 6. Cerebrovascular accident, transient ischemic attack. RECOMMENDATIONS AND DISCUSSION: I recommend to continue current management, continue symptomatic treatment. Closely follow with Cardiology. Continue telemetry. Increase ambulation. Monitor blood pressure closely. Further recommendations to follow. Medications adjusted. MMODL / IJN: [id number] /
--- NOTE | 2017-05-19 19:02 | PN ---
PROGRESS NOTE DATE OF SERVICE: 05/19/2017 This 89-year-old woman was admitted with change in mental status, syncope also had cardiac catheterization, no chest pain. No palpitations. No fever. The patient also had hypertensive urgency upon presentation. EXAM: Alert, oriented times three. Pulse 64, blood pressure 150/70, respiration 18, temperature 97.2, pulse ox 94% on room air. HEENT: Conjunctivae normal. Neck: No jugular venous distention. Cardiovascular : S1, S2 muffled. Respiratory: Breath sounds diminished in the bases. No rhonchi, no crackles. Abdomen is soft, nontender. No mass palpable. Legs: No edema. No swelling. Central nervous system: No focal deficits. LAB: Investigations are WBC 7.2, hemoglobin 12.8. ASSESSMENT: 1. Syncope with change in mental status, secondary to hypotension present on admission. 2. Supraventricular tachycardia . 3. Baseline left bundle branch block. 4. Hypertensive urgency. 5. Hypertension. 6. History of cerebrovascular accident, transient ischemic attack. DISCUSSION AND RECOMMENDATIONS: I recommend to continue current management and continue symptomatic treatment, adjust medications. The patient is started on combination of Amiodarone and as well as Norvasc and hydralazine by Cardiology. Continue to monitor. Dr. Tolentino will follow. Prognosis guarded. MMODL / IJN: [id number] / MTDAlexia
[2017-05-20] MEDS: LISINOPRIL 20 MG TAB PO SCH (08:05)
[2017-05-20] MEDS: VIT A,C & E-LUTEIN-MINERALS 1 EACH TAB PO SCH (08:05)
[2017-05-20] MEDS: METOPROLOL TARTRATE 25 MG TAB PO SCH (08:05)
[2017-05-20] MEDS: AMIODARONE 200 MG TAB PO SCH (08:06)
[2017-05-20] MEDS: ASCORBIC ACID 500 MG TAB PO SCH (08:06)
[2017-05-20] MEDS: hydrALAZINE HCL 50 MG TAB PO SCH ×2 (08:06→15:11)
[2017-05-20] MEDS: ENOXAPARIN 40 MG/0.4 ML SYRINGE SQ SCH (08:06)
[2017-05-20] MEDS: amLODIPine 10 MG TAB PO SCH (08:06)
[2017-05-20] MEDS: CEPHALEXIN 500 MG CAP PO SCH ×3 (08:06→17:39)
[2017-05-20] MEDS: ASPIRIN 81 MG PO SCH (08:06)
[2017-05-20] MEDS: PANTOPRAZOLE 40 MG TABLET PO SCH (08:06)
--- NOTE | 2017-05-20 11:04 | P.PN ---
Subjective Patient sitting at side of bed awake and alert continues with hypertension cardiology adjusting medication Objective - Vital Signs Vital signs: Vital Signs Temp 96.5 F L 05/20/17 07:00 Pulse 60 05/20/17 07:00 Resp 16 05/20/17 07:00 BP 166/76 05/20/17 07:00 Pulse Ox 98 05/20/17 07:00 Intake & Output 05/19/17 05/20/17 05/20/17 18:59 06:59 18:59 Output Total 500 Balance -500 Weight 71.5 kg Output: Urine 500 Other: Voiding Method Toilet Bedside Commode Bedside Commode Bedside Commode # Voids 3 4 - Constitutional General appearance: Present: average body habitus - EENT Eyes: Present: PERRLA Ears: bilateral: normal - Neck Neck: Present: normal ROM - Respiratory Respiratory: bilateral: CTA - Cardiovascular Rhythm: regular - Gastrointestinal General gastrointestinal: Present: soft - Integumentary Integumentary: Present: normal - Neurologic Neurologic: Present: CNII-XII intact - Musculoskeletal Musculoskeletal: Present: generalized weakness - Labs CBC & Chem 7: 05/17/17 02:49 05/18/17 07:22 - Imaging and Cardiology Chest x-ray: report reviewed Assessment and Plan Plan: Assessment Altered mental status secondary to hypotension. Dehydration Urinary tract infection SVT History of CVA/TIA GERD Hypertension Plan Continue titration of blood pressure medicine for hypertension per cardiology
[2017-05-20] MEDS ORDERED: BISACODYL 10 MG SUPP RECTAL PRN (13:08)
[2017-05-20] MEDS ORDERED: ONDANSETRON 4 MG/2 ML VIAL IVP PRN (13:10)
--- NOTE | 2017-05-20 13:56 | P.PN ---
Subjective Mrs Durbin is an 89-year-old female with past medical history significant for HTN. She was sent to the ED after PCP was treating uncontrolled HTN and starting new medications. She was started on clonidine and HCTZ at that time for blood pressure 220/114. Upon arrival to ED she was also found to have a UTI. We have been following with the patient for episodes of tachycardia up to 160s, per telemetry tracings this appears to be SVT. She was started on amiodarone, hydralazine, aspirin and norvasc was increased yesterday. Blood pressure this morning 166/76 with heart rate 60. She has no further episodes of tachycardia on telemetry. Upon exam she is seen sitting up in bed with daughter at the bedside. She denies chest pain, shortness of breath, dizziness or palpitations. She does c/o burning, flushing type headache. Objective - Vital Signs Vital signs: Vital Signs Temp 96.5 F L 05/20/17 07:00 Pulse 60 05/20/17 07:00 Resp 16 05/20/17 07:00 BP 166/76 05/20/17 07:00 Pulse Ox 98 05/20/17 07:00 Intake & Output 05/19/17 05/20/17 05/20/17 18:59 06:59 18:59 Output Total 500 Balance -500 Weight 71.5 kg 71.5 kg Output: Urine 500 Other: Voiding Method Toilet Bedside Commode Bedside Commode Bedside Commode # Voids 3 4 - Exam GENERAL: Well-appearing, well-nourished and in no acute distress. NECK: Supple without JVD or thyromegaly. LUNGS: Breath sounds clear to auscultation bilaterally. Respiration equal and unlabored. No wheezes, rales or rhonchi. HEART: Regular rate and rhythm with systolic ejection murmur at the base, no rubs or gallops. S1 and S2 heard. EXTREMITIES: Normal range of motion, no edema. No clubbing or cyanosis. Peripheral pulses intact and strong. - Labs CBC & Chem 7: 05/17/17 02:49 05/18/17 07:22 Assessment and Plan Plan: ASSESSMENT 1. Hypertension, uncontrolled 2. Supraventricular tachycardia 3. Urinary tract infection, on antibiotic therapy. PLAN Continue medications as previously ordered. We will taper amiodarone upon discharge. We will continue to monitor blood pressure and make further adjustments as needed. Further recommendations will be base upon clinical course. Nurse Practitioner note has been reviewed, I agree with a documented findings and plan of care. Patient was seen and examined.
[2017-05-20] MEDS: NA PHOS,M-B/NA PHOS,DI-BA 133 ML ENEMA RECTAL PRN (15:10)
[2017-05-20] MEDS: ACETAMINOPHEN TAB 325 MG TAB PO PRN (22:23)
[2017-05-21] MEDS: CEPHALEXIN 500 MG CAP PO SCH ×5 (00:12→21:11)
[2017-05-21] MEDS: NA PHOS,M-B/NA PHOS,DI-BA 133 ML ENEMA RECTAL PRN (00:40)
[2017-05-21] MEDS: METOPROLOL TARTRATE 25 MG TAB PO SCH ×3 (03:17→21:11)
[2017-05-21] MEDS: AMIODARONE 200 MG TAB PO SCH ×3 (03:17→21:11)
[2017-05-21] MEDS: hydrALAZINE HCL 50 MG TAB PO SCH ×2 (03:17→08:06)
--- NOTE | 2017-05-21 07:23 | XR ---
2 view abdomen HISTORY: Constipation 2 views of the abdomen submitted on 3 images No comparisons Patient is rotated possibly due to underlying scoliosis. The heart appears enlarged. Lung bases are c lear, suspect there may be underlying COPD. There are prominent lung volumes. No pneumoperitoneum or bowel obstruction evident. Possible vascular calcifications present within the pelvis. Degenerative d isc disease in the visualized spine. IMPRESSION: Scoliosis, degenerative disc disease. No acute abnormalities evident. Cardiomegaly, possi ble COPD.
[2017-05-21] MEDS: LISINOPRIL 20 MG TAB PO SCH (08:04)
[2017-05-21] MEDS: ENOXAPARIN 40 MG/0.4 ML SYRINGE SQ SCH (08:04)
[2017-05-21] MEDS: PANTOPRAZOLE 40 MG TABLET PO SCH (08:05)
[2017-05-21] MEDS: amLODIPine 10 MG TAB PO SCH (08:05)
[2017-05-21] MEDS: ASCORBIC ACID 500 MG TAB PO SCH (08:06)
[2017-05-21] MEDS: ASPIRIN 81 MG PO SCH (08:06)
[2017-05-21 08:48] LABS: ALT 34 U/L (9-52); AST 28 U/L (14-36); Alkaline Phosphatase 46 U/L (38-126); Anion Gap 12 mmol/L; Blood Urea Nitrogen 25 mg/dL (7-17); Calcium 9.2 mg/dL (8.4-10.2); Carbon Dioxide 24 mmol/L (22-30); Chloride 98 mmol/L (98-107); Glucose 101 mg/dL (74-99); Non-African American GFR(MDRD) 54 (>60 ml/min/1.73 sqM); Potassium 3.5 mmol/L (3.5-5.1); Sodium 134 mmol/L (137-145); Total Bilirubin 1.1 mg/dL (0.2-1.3); Total Protein 6.3 g/dL (6.3-8.2)
--- NOTE | 2017-05-21 10:39 | P.PN ---
Subjective Mrs Durbin is an 89-year-old female with past medical history significant for HTN. She was sent to the ED after PCP was treating uncontrolled HTN and starting new medications as an outpatient. She was started on clonidine and HCTZ at that time for blood pressure 220/114 in addition to lisinopril she had been taking. Upon arrival to ED she was also found to have a UTI. We have been following with the patient for episodes of tachycardia up to 160s, per telemetry tracings this appears to be SVT and amiodarone was initiated. Upon exam today she is seen sitting up in bed with her daughter at the bedside. She is feeling well and states she had a large bowel movement last night and feels much better overall. She denies any further headaches. Blood pressure has been well controlled with an episode of hypotension last night of 96/44. Otherwise pressures have been running in 130-140 systolic. She denies chest pain, shortness of breath, dizziness or palpitations. Telemetry tracings indicate sinus rhythm with PVC's heart rate 70-90s. Objective - Vital Signs Vital signs: Vital Signs Temp 98.9 F 05/21/17 06:24 Pulse 92 05/21/17 06:24 Resp 16 05/21/17 06:24 BP 140/75 05/21/17 06:24 Pulse Ox 95 05/21/17 06:24 Intake & Output 05/20/17 05/21/17 05/21/17 18:59 06:59 18:59 Weight 71.5 kg Other: Voiding Method Bedside Commode Bedside Commode # Voids 1 2 # Bowel Movements 1 - Exam GENERAL: Well-appearing, well-nourished and in no acute distress. NECK: Supple without JVD or thyromegaly. LUNGS: Breath sounds clear to auscultation bilaterally. Respiration equal and unlabored. No wheezes, rales or rhonchi. HEART: Regular rate and rhythm with systolic ejection murmur at the base, no rubs or gallops. S1 and S2 heard. EXTREMITIES: Normal range of motion, no edema. No clubbing or cyanosis. Peripheral pulses intact and strong. - Labs CBC & Chem 7: 05/17/17 02:49 05/21/17 07:20 Labs: Abnormal Lab Results - Last 24 Hours (Table) 05/21/17 Range/Units 07:20 Sodium 134 L (137-145) mmol/L BUN 25 H (7-17) mg/dL Glucose 101 H (74-99) mg/dL Assessment and Plan Plan: ASSESSMENT 1. Hypertension, controlled on current regimen 2. Supraventricular tachycardia 3. Urinary tract infection, on antibiotic therapy. PLAN We recommend decreasing hydralazine to 25 mg TID to avoid hypotension. She should continue all other antihypertensive medications as previously ordered. She has been advised to check her blood pressure daily at home and keep a journal for follow up visits. Daughter at the bedside agreeable. Amiodarone should be tapered as follows: 400 mg PO BID for 4 more days to total 1-week; then 300 mg PO BID x1 week; then 200 mg PO BID x4 weeks. She should follow up with Dr. Amezquita in 2-4 weeks to evaluate blood pressure and medication tolerance. Please increase activity. Avoid rising too quickly. Nurse Practitioner note has been reviewed, I agree with a documented findings and plan of care. Patient was seen and examined.
--- NOTE | 2017-05-21 10:57 | P.CONS ---
History of Present Illness - Reason for Consult Consult date: 05/21/17 Constipation Requesting physician: Tito Tolentino - History of Present Illness 89-year-old female with UTI maxillary hypertension. Consultation requested for constipation. Patient states she did not have a bowel movement for a few days however last night she a large bowel movement. Yesterday she was reporting moderate abdominal discomfort secondary to constipation. Denies hematemesis hematochezia melena. No history of chronic constipation. No history of colonoscopy. Presently she is resting comfortably tolerating diet. Denies abdominal pain. Abdominal x-rays unremarkable. Review of Systems Constitutional: Denies fever, chills, sweats, weight gain, or loss. HEENT: Negative for migraines, blurred vision or loss, earaches, drainage, tinnitus, oral mucosal lesions, dysphagia, or odynophagia. CARDIAC: Retention. Negative for chest pain, arrhythmias, or palpitation. RESPIRATORY: Negative for shortness of breath, hemoptysis, cough, or sputum production. GI: See HPI for pertinent findings. : Negative for hematuria, urgency, frequency, polyuria, or dysuria. GYNc: Denies possibility of . Negative vaginal discharge. MUSCULOSKELETAL: Negative for muscle aches, swelling, arthritis, and arthralgias. NEUROLOGIC: Shingles. Negative for stroke or TIA. ENDOCRINE: Negative for thyroid problems. SKIN: Negative for rash or itching. PSYCHIATRIC: Negative history for depression and anxiety All systems: negative (See HPI) Past Medical History Past Medical History: CVA/TIA, GERD/Reflux, Hypertension Additional Past Medical History / Comment(s): shingles,neuropathy,abcess tooth History of Any Multi-Drug Resistant Organisms: None Reported Past Surgical History: Adenoidectomy, Hysterectomy, Orthopedic Surgery, Tonsillectomy Additional Past Surgical History / Comment(s): left shoulder surgery Past Psychological History: No Psychological Hx Reported Smoking Status: Never smoker Past Alcohol Use History: None Reported Past Drug Use History: None Reported Medications and Allergies Home Medications Medication Instructions Recorded Confirmed Type Ascorbic Acid [Vitamin C] 500 mg PO DAILY 05/14/17 05/14/17 History Calcium/Magnesium/Zinc 1 tab PO DAILY 05/14/17 05/14/17 History [Ykbmnsi-Arigmfjbh-Fsji Tablet] Clopidogrel Bisulfate [Plavix] 75 mg PO DAILY 05/14/17 05/14/17 History Hydrochlorothiazide 12.5 mg PO DAILY 05/14/17 05/14/17 History Lisinopril 40 mg PO DAILY 05/14/17 05/14/17 History Metoprolol Tartrate [Lopressor] 25 mg PO BID 05/14/17 05/14/17 History Pantoprazole Sodium [Protonix] 40 mg PO DAILY 05/14/17 05/14/17 History Papaya [Papaya Enzyme] 1 tab PO HS 05/14/17 05/14/17 History Vit C/E/Zn/Coppr/Lutein/Zeaxan 1 cap PO DAILY 05/14/17 05/14/17 History [Preservision Areds 2 Softgel] cloNIDine HCL [Catapres] 0.1 mg PO BID 05/14/17 05/14/17 History Amiodarone [Cordarone] 200 mg PO BID #60 tab 05/21/17 Rx Amiodarone [Cordarone] 300 mg PO BID #14 tablet 05/21/17 Rx Amiodarone [Cordarone] 400 mg PO BID #8 tab 05/21/17 Rx Allergies Allergy/AdvReac Type Severity Reaction Status Date / Time No Known Allergies Allergy Verified 05/14/17 16:41 Physical Exam Vitals: Vital Signs Temp Pulse Resp BP BP BP BP 05/21/17 06:24 98.9 F 92 16 140/75 05/21/17 03:29 79 05/21/17 00:40 97.8 F 61 96/44 05/20/17 23:00 97.0 F L 76 100/56 05/20/17 15:31 84 143/72 05/20/17 15:30 88 165/77 05/20/17 15:29 77 161/74 05/20/17 15:00 97.3 F L 78 18 BP Pulse Ox 05/21/17 06:24 95 05/21/17 03:29 134/46 05/21/17 00:40 95 05/20/17 23:00 98 05/20/17 15:31 05/20/17 15:30 05/20/17 15:29 05/20/17 15:00 148/80 98 Intake and Output 05/20/17 05/21/17 05/21/17 22:59 06:59 14:59 Other: Voiding Method Bedside Commode Bedside Commode # Voids 1 2 # Bowel Movements 1 General appearance: The patient is alert, oriented, in no acute distress. HET: Head is normocephalic and atraumatic. Pupils are equal and reactive. Oropharynx is clear without lesions. Neck: Supple without lymphadenopathy. Trachea midline. Heart: S1 S2. Regular rate and rhythm. Lungs: No crackles or wheezes are heard. Abdomen: Soft, nontender, nondistended with bowel sounds. No peritoneal signs. No palpable organomegaly or masses. Extremities: Normal skin color and turgor. No cyanosis, rash, ulceration, clubbing, or edema. Radial and pedal pulses are 2/4 bilaterally. Neurological: No focal deficits. Strength and sensation are grossly intact. Results CBC & Chem 7: 05/17/17 02:49 05/21/17 07:20 Labs: Abnormal Lab Results - Last 24 Hours (Table) 05/21/17 Range/Units 07:20 Sodium 134 L (137-145) mmol/L BUN 25 H (7-17) mg/dL Glucose 101 H (74-99) mg/dL Abdominal x-ray: report reviewed (Dr. Neumann) Assessment and Plan (1) Constipation Narrative/Plan: Resolved Status: Acute Plan: 1. No further workup at this point. Constipation seems to have resolved. Continue gentle stool softeners once-twice daily for regularity. Patient is not interested in endoscopic workup; declines. We'll follow as needed. Discharge per medicine. Thank you for this kind referral and the opportunity to participate in the care of your patient. This consultation was discussed with Dr. Neumann. The impression and plan of care have been directed as dictated.
--- NOTE | 2017-05-21 11:52 | P.PN ---
Subjective Patient resting in bed family at bedside. States constipation is been resolved still feels a little nauseous. Blood pressure improving. Hopeful discharge home in the morning Objective - Vital Signs Vital signs: Vital Signs Temp 98.9 F 05/21/17 06:24 Pulse 92 05/21/17 06:24 Resp 16 05/21/17 06:24 BP 140/75 05/21/17 06:24 Pulse Ox 95 05/21/17 06:24 Intake & Output 05/20/17 05/21/17 05/21/17 18:59 06:59 18:59 Weight 71.5 kg Other: Voiding Method Bedside Commode Bedside Commode # Voids 1 2 # Bowel Movements 1 - Constitutional General appearance: Present: mild distress - EENT Eyes: Present: PERRLA Ears: bilateral: normal - Neck Neck: Present: normal ROM - Respiratory Respiratory: bilateral: CTA - Cardiovascular Rhythm: regular - Gastrointestinal General gastrointestinal: Present: soft - Integumentary Integumentary: Present: normal - Neurologic Neurologic: Present: CNII-XII intact - Musculoskeletal Musculoskeletal: Present: generalized weakness - Psychiatric Psychiatric: Present: A&O x's 3, appropriate affect, intact judgment & insight - Labs CBC & Chem 7: 05/17/17 02:49 05/21/17 07:20 Labs: Abnormal Lab Results - Last 24 Hours (Table) 05/21/17 Range/Units 07:20 Sodium 134 L (137-145) mmol/L BUN 25 H (7-17) mg/dL Glucose 101 H (74-99) mg/dL - Imaging and Cardiology Abdominal x-ray: report reviewed Assessment and Plan Plan: Assessment Altered mental status secondary to hypotension with syncope Dehydration Urinary tract infecton SVT history of CVA/TIA GERD Hypertension Constipation resolved Plan Continue consultation with cardiology Consultation done with gastroenterology they have signed off Family wanting PT evaluation hopeful discharge in the morning
[2017-05-21] MEDS: VIT A,C & E-LUTEIN-MINERALS 1 EACH TAB PO SCH (13:58)
[2017-05-21] MEDS: hydrALAZINE HCL 25 MG TAB PO SCH ×2 (15:35→21:12)
[2017-05-21] MEDS: SENNOSIDES-DOCUSATE SODIUM 1 EACH TAB PO SCH (21:11)
[2017-05-22 08:00] VITALS: BP 125/60; PULSE 60; RESP 20; TEMP 97.9
[2017-05-22] MEDS: VIT A,C & E-LUTEIN-MINERALS 1 EACH TAB PO SCH (08:26)
[2017-05-22] MEDS: SENNOSIDES-DOCUSATE SODIUM 1 EACH TAB PO SCH (08:26)
[2017-05-22] MEDS: amLODIPine 10 MG TAB PO SCH (08:26)
[2017-05-22] MEDS: LISINOPRIL 20 MG TAB PO SCH (08:26)
[2017-05-22] MEDS: ASPIRIN 81 MG PO SCH (08:27)
[2017-05-22] MEDS: AMIODARONE 200 MG TAB PO SCH (08:27)
[2017-05-22] MEDS: ENOXAPARIN 40 MG/0.4 ML SYRINGE SQ SCH (08:27)
[2017-05-22] MEDS: METOPROLOL TARTRATE 25 MG TAB PO SCH (08:27)
[2017-05-22] MEDS: CEPHALEXIN 500 MG CAP PO SCH ×2 (08:27→12:07)
[2017-05-22] MEDS: ASCORBIC ACID 500 MG TAB PO SCH (08:27)
[2017-05-22] MEDS: hydrALAZINE HCL 25 MG TAB PO SCH (08:27)
[2017-05-22] MEDS: PANTOPRAZOLE 40 MG TABLET PO SCH (08:27)
[2017-05-22] MEDS: ACETAMINOPHEN TAB 325 MG TAB PO PRN (12:07)
--- NOTE | 2017-05-22 12:22 | P.DS ---
Providers Date of admission: 05/14/17 19:01 Expected date of discharge: 05/22/17 Attending physician: Tito Tolentino Primary care physician: Tito Tolentino Hospital Course: 89-year-old female was admitted to the emergency room after hypotensive episode. Patient had been hypertensive with blood pressures running 200 systolic. At family physicians attempting to adjust medication. Patient was evaluated by cardiology medication adjusted. Evaluated by gastroenterology for constipation problem remedied Plan Altered mental status secondary to hypotension dehydration Urinary tract infection History of CVA/TIA GERD Hypertension SVT Constipation Plan Patient can be discharged home Physical therapy and visiting nurse Patient is to follow-up with family physician and cardiology Patient Condition at Discharge: Fair Plan - Discharge Summary New Discharge Prescriptions: New Amiodarone [Cordarone] 400 mg PO BID #8 tab Amiodarone [Cordarone] 300 mg PO BID #14 tablet Amiodarone [Cordarone] 200 mg PO BID #60 tab amLODIPine [Norvasc] 10 mg PO DAILY #30 tab hydrALAZINE HCL [Apresoline] 25 mg PO TID #90 tab Nitroglycerin Sl Tabs [Nitrostat] 0.4 mg SUBLINGUAL Q5M PRN tab PRN Reason: Chest Pain Sennosides-Docusate Sodium [Senokot-S] 1 each PO BID tab Continue Papaya [Papaya Enzyme] 1 tab PO HS Calcium/Magnesium/Zinc [Mseausz-Hvjgpdavp-Btwy Tablet] 1 tab PO DAILY Ascorbic Acid [Vitamin C] 500 mg PO DAILY Pantoprazole Sodium [Protonix] 40 mg PO DAILY Metoprolol Tartrate [Lopressor] 25 mg PO BID Clopidogrel Bisulfate [Plavix] 75 mg PO DAILY Vit C/E/Zn/Coppr/Lutein/Zeaxan [Preservision Areds 2 Softgel] 1 cap PO DAILY Lisinopril 40 mg PO DAILY Discontinued cloNIDine HCL [Catapres] 0.1 mg PO BID Hydrochlorothiazide 12.5 mg PO DAILY Discharge Medication List Ascorbic Acid [Vitamin C] 500 mg PO DAILY 05/14/17 [History] Calcium/Magnesium/Zinc [Jvkwlej-Muglvasks-Xbut Tablet] 1 tab PO DAILY 05/14/17 [ History] Clopidogrel Bisulfate [Plavix] 75 mg PO DAILY 05/14/17 [History] Lisinopril 40 mg PO DAILY 05/14/17 [History] Metoprolol Tartrate [Lopressor] 25 mg PO BID 05/14/17 [History] Pantoprazole Sodium [Protonix] 40 mg PO DAILY 05/14/17 [History] Papaya [Papaya Enzyme] 1 tab PO HS 05/14/17 [History] Vit C/E/Zn/Coppr/Lutein/Zeaxan [Preservision Areds 2 Softgel] 1 cap PO DAILY [History] Amiodarone [Cordarone] 200 mg PO BID #60 tab 05/21/17 [Rx] Amiodarone [Cordarone] 300 mg PO BID #14 tablet 05/21/17 [Rx] Amiodarone [Cordarone] 400 mg PO BID #8 tab 05/21/17 [Rx] Nitroglycerin Sl Tabs [Nitrostat] 0.4 mg SUBLINGUAL Q5M PRN tab 05/22/17 [Rx] Sennosides-Docusate Sodium [Senokot-S] 1 each PO BID tab 05/22/17 [Rx] amLODIPine [Norvasc] 10 mg PO DAILY #30 tab 05/22/17 [Rx] hydrALAZINE HCL [Apresoline] 25 mg PO TID #90 tab 05/22/17 [Rx] Follow up Appointment(s)/Referral(s): Tito Tolentino MD [Primary Care Provider] - 1-2 days Skyler Amezquita MD [STAFF PHYSICIAN] - 2 Weeks [facility] Visiting Nurse, [NON-STAFF] -
== END 2017-05-22 14:34 | disposition home health service (06) | DRG 315 ==
LOC: EC 15:35 → 4MS4W 19:01
PROVIDERS: ADMIT Family Medicine; ATTEND Family Medicine
DX: I95.9 Hypotension, unspecified (principal); I47.1 Supraventricular tachycardia; N39.0 Urinary tract infection, site not specified; E87.1 Hypo-osmolality and hyponatremia; I49.5 Sick sinus syndrome; G62.9 Polyneuropathy, unspecified; E86.0 Dehydration; I44.7 Left bundle-branch block, unspecified; I16.0 Hypertensive urgency; R07.89 Other chest pain; I10 Essential (primary) hypertension; K21.9 Gastro-esophageal reflux disease without esophagitis; K59.00 Constipation, unspecified; I49.3 Ventricular premature depolarization; Z79.02 Long term (current) use of antithrombotics/antiplatelets; Z79.899 Other long term (current) drug therapy
CPT/HCPCS: 36415; 71020; 74020; 80048; 80053; 80061; 81001; 82550; 82553; 83605; 83690; 83735; 83880; 84100; 84443; 84484; 85025; 85379; 85610; 85730; 87086; 93005; 93306; 94760; 96361; 96374; 99285

== ENCOUNTER → 2017-11-11 | Outpatient (CLI) | payer MEDICARE ==
--- NOTE | 2017-11-11 13:46 | XR ---
EXAMINATION TYPE: XR chest 2V DATE OF EXAM: 11/11/2017 COMPARISON: 05/14/2017 TECHNIQUE: PA and lateral views submitted. HISTORY: Pain FINDINGS: The lungs are clear and there is no pneumothorax, pleural effusion, or focal pneumonia. Chronic def ormities of the ribs are seen on the left. Linear changes involving the lungs are suggestive of scar or atelectasis. Diffuse osteopenia. Heart size is prominent. Degenerative change of the spine. Hyperi nflation suggests COPD. IMPRESSION: 1. Correlate for COPD. Basilar linear atelectasis or scar noted..
--- NOTE | 2017-11-11 13:49 | XR ---
EXAMINATION TYPE: XR ribs LT DATE OF EXAM: 11/11/2017 COMPARISON: NONE HISTORY: Pain post fall TECHNIQUE: 4 views are submitted FINDINGS: Chronic appearing deformity of the humeral neck suggests previous trauma. Deformities invol ving the rib cage are suggestive of remote trauma. There is a slight deformity of the posterior left eighth rib. Curvature the spine with multilevel deg enerative disc disease noted. IMPRESSION: 1. Chronic rib cage deformities involving the left upper rib cage. 2. There is a deformity involving the left posterior eighth ribs which could been the basis of a nond isplaced acute fracture correlate with point tenderness.
== END | disposition home or self-care (01) ==
LOC: RADXRMAIN 12:30
PROVIDERS: ATTEND Family Medicine
DX: M95.4 Acquired deformity of chest and rib (principal); S20.20XA Contusion of thorax, unspecified, initial encounter
CPT/HCPCS: 71046

== ENCOUNTER 2017-11-12 11:58 | Observation (INO) | payer MEDICARE ==
--- NOTE | 2017-11-12 14:18 | ED ---
General Adult HPI - General Chief complaint: Extremity Injury, Lower Stated complaint: Rib pain Time Seen by Provider: 11/12/17 13:29 Source: patient, RN notes reviewed Mode of arrival: wheelchair Limitations: no limitations - History of Present Illness Initial comments: 89-year-old female presents to the emergency department for a chief complaint of left leg pain. Patient states she fell 5 days ago onto her left side. Patient denies hitting her head. Patient has a history of hemorrhagic stroke. Patient states she saw her primary care physician who ordered a chest and rib x- ray which came back within normal limits. She contacted him again today with complaints of left leg pain. He suggested she be seen urgency department for brain CT and x-ray scans of the entire mall. Patient has some residual symptoms of stroke in her left side but this numbness is since the fall 5 days ago. Patient denies any confusion, headache, visual changes. Patient states her speech has been normal. Patient denies a weakness in the left arm and left leg. She states she is dragging her left leg somewhat when she walks but thinks this is due to the pain. Patient also admits she has pain in her lower back and may have fallen on this as well. Patient denies changes in bladder or bowel function. Patient has not taken anything for pain today but does not want anything at this time. - Related Data Home Medications Medication Instructions Recorded Confirmed Clopidogrel Bisulfate [Plavix] 75 mg PO DAILY 05/14/17 11/12/17 Lisinopril 40 mg PO DAILY 05/14/17 11/12/17 Metoprolol Tartrate [Lopressor] 12.5 mg PO DAILY 05/14/17 11/12/17 Pantoprazole Sodium [Protonix] 40 mg PO DAILY 05/14/17 11/12/17 Amiodarone [Cordarone] 100 mg PO DAILY 11/12/17 11/12/17 Furosemide [Lasix] 20 mg PO BID 11/12/17 11/12/17 Gabapentin [Neurontin] 100 mg PO TID 11/12/17 11/12/17 Previous Rx's Medication Instructions Recorded Nitroglycerin Sl Tabs [Nitrostat] 0.4 mg SUBLINGUAL Q5M PRN tab 05/22/17 hydrALAZINE HCL [Apresoline] 25 mg PO TID #90 tab 05/22/17 Allergies Allergy/AdvReac Type Severity Reaction Status Date / Time No Known Allergies Allergy Verified 11/12/17 13:29 Review of Systems ROS Statement: Those systems with pertinent positive or pertinent negative responses have been documented in the HPI. ROS Other: All systems not noted in ROS Statement are negative. Past Medical History Past Medical History: CVA/TIA, GERD/Reflux, Hypertension Additional Past Medical History / Comment(s): shingles,neuropathy,abcess tooth History of Any Multi-Drug Resistant Organisms: None Reported Past Surgical History: Adenoidectomy, Hysterectomy, Orthopedic Surgery, Tonsillectomy Additional Past Surgical History / Comment(s): left shoulder surgery Past Psychological History: No Psychological Hx Reported Smoking Status: Never smoker Past Alcohol Use History: None Reported Past Drug Use History: None Reported General Exam Limitations: no limitations General appearance: alert, in no apparent distress Head exam: Present: atraumatic, normocephalic, normal inspection Eye exam: Present: normal appearance, PERRL, EOMI. Absent: scleral icterus, conjunctival injection, periorbital swelling Pupils: Present: normal accommodation ENT exam: Present: normal exam, normal oropharynx, mucous membranes moist Neck exam: Present: normal inspection, full ROM. Absent: tenderness, meningismus, lymphadenopathy Respiratory exam: Present: normal lung sounds bilaterally. Absent: respiratory distress, wheezes, rales, rhonchi, stridor Cardiovascular Exam: Present: regular rate, normal rhythm, normal heart sounds. Absent: systolic murmur, diastolic murmur, rubs, gallop, clicks GI/Abdominal exam: Present: soft. Absent: distended, tenderness, guarding, rebound, rigid Extremities exam: Present: full ROM, tenderness (Tenderness to the left hip femur and tib/fib. No tenderness in the left foot.), normal capillary refill ( Refill 2+ in lower extremities bilaterally.), pedal edema (One plus pitting edema. Patient states this is chronic.). Absent: joint swelling Back exam: Present: tenderness (To the lumbar spine.) Neurological exam: Present: alert, oriented X3, CN II-XII intact Psychiatric exam: Present: normal affect, normal mood Course Vital Signs 11/12/17 11/12/17 11/12/17 12:47 15:17 16:40 Temperature 97.9 F Pulse Rate 50 L 54 L 56 L Respiratory 16 16 16 Rate Blood Pressure 182/72 174/81 193/79 O2 Sat by Pulse 97 96 98 Oximetry 11/12/17 18:08 Temperature 98 F Pulse Rate 63 Respiratory 16 Rate Blood Pressure 207/93 O2 Sat by Pulse 98 Oximetry EKG Findings - EKG Comments: EKG Findings:: Sinus bradycardia, chronic left bundle branch block, ventricular rate 55, NJ interval 110 Medical Decision Making - Medical Decision Making 89-year-old female presents to the emergency department for a chief complaint of fall and pain in the left leg. Patient fell 5 days ago and was seen by her primary care provider who ordered rib x-rays and chest x-ray. Those came back normal. Patient called today and stated she had pain in the left leg. He states that she should be seen in the ER for a computed tomography scan of the brain and left leg considering her history of hemorrhagic stroke. Patient has no headache, change in vision, or confusion at this time. Patient 6 demonstrates tenderness in the lumbar spine and left hip, femur, and tib-fib. Patient denies tenderness in the foot. Patient states she has had mild numbness in the left arm and left leg for the past 5 days. Patient does have residual symptoms of a stroke on the left side of her body but states this slight numbness is new as of 5 days ago when she fell. Patient denies any new symptoms starting today. CT noncontrast brain and xr scans of the lumbar spine and left leg were obtained. X-ray of the lumbar spine demonstrates an L1 anterior wedge compression deformity. X-rays of the left femur, tib-fib, and foot appear unremarkable. No acute fractures or dislocations. CT noncontrast brain shows no acute intracranial process. No mass effect or midline shift. Blood work appears unremarkable. Patient will be admitted under Dr. Forde with a neuro consult. She will receive an echo and carotid Doppler as well as physical therapy. - Lab Data Result diagrams: 11/12/17 15:12 11/12/17 15:12 Lab Results 11/12/17 11/12/17 11/12/17 Range/Units 15:12 15:12 15:12 WBC 7.0 (3.8-10.6) k/uL RBC 3.81 (3.80-5.40) m/uL Hgb 10.9 L (11.4-16.0) gm/dL Hct 33.0 L (34.0-46.0) % MCV 86.6 (80.0-100.0) fL MCH 28.7 (25.0-35.0) pg MCHC 33.2 (31.0-37.0) g/dL RDW 13.1 (11.5-15.5) % Plt Count 225 (150-450) k/uL Neutrophils % 63 % Lymphocytes % 23 % Monocytes % 8 % Eosinophils % 2 % Basophils % 1 % Neutrophils # 4.4 (1.3-7.7) k/uL Lymphocytes # 1.6 (1.0-4.8) k/uL Monocytes # 0.6 (0-1.0) k/uL Eosinophils # 0.1 (0-0.7) k/uL Basophils # 0.1 (0-0.2) k/uL PT (9.0-12.0) sec INR (<1.2) APTT (22.0-30.0) sec Sodium 133 L (137-145) mmol/L Potassium 4.2 (3.5-5.1) mmol/L Chloride 94 L (98-107) mmol/L Carbon Dioxide 30 (22-30) mmol/L Anion Gap 9 mmol/L BUN 26 H (7-17) mg/dL Creatinine 1.05 H (0.52-1.04) mg/dL Est GFR (CKD-EPI)AfAm 54 (>60 ml/min/1.73 sqM) Est GFR (CKD-EPI)NonAf 47 (>60 ml/min/1.73 sqM) Glucose 93 (74-99) mg/dL Calcium 9.4 (8.4-10.2) mg/dL Total Bilirubin 0.7 (0.2-1.3) mg/dL AST 23 (14-36) U/L ALT 23 (9-52) U/L Alkaline Phosphatase 59 (38-126) U/L Total Creatine Kinase 73 (30-135) U/L CK-MB (CK-2) 1.6 (0.0-2.4) ng/mL CK-MB (CK-2) Rel Index 2.2 Troponin I <0.012 (0.000-0.034) ng/mL Total Protein 7.0 (6.3-8.2) g/dL Albumin 4.4 (3.5-5.0) g/dL 11/12/17 Range/Units 15:12 WBC (3.8-10.6) k/uL RBC (3.80-5.40) m/uL Hgb (11.4-16.0) gm/dL Hct (34.0-46.0) % MCV (80.0-100.0) fL MCH (25.0-35.0) pg MCHC (31.0-37.0) g/dL RDW (11.5-15.5) % Plt Count (150-450) k/uL Neutrophils % % Lymphocytes % % Monocytes % % Eosinophils % % Basophils % % Neutrophils # (1.3-7.7) k/uL Lymphocytes # (1.0-4.8) k/uL Monocytes # (0-1.0) k/uL Eosinophils # (0-0.7) k/uL Basophils # (0-0.2) k/uL PT 10.3 (9.0-12.0) sec INR 1.0 (<1.2) APTT 26.1 (22.0-30.0) sec Sodium (137-145) mmol/L Potassium (3.5-5.1) mmol/L Chloride (98-107) mmol/L Carbon Dioxide (22-30) mmol/L Anion Gap mmol/L BUN (7-17) mg/dL Creatinine (0.52-1.04) mg/dL Est GFR (CKD-EPI)AfAm (>60 ml/min/1.73 sqM) Est GFR (CKD-EPI)NonAf (>60 ml/min/1.73 sqM) Glucose (74-99) mg/dL Calcium (8.4-10.2) mg/dL Total Bilirubin (0.2-1.3) mg/dL AST (14-36) U/L ALT (9-52) U/L Alkaline Phosphatase (38-126) U/L Total Creatine Kinase (30-135) U/L CK-MB (CK-2) (0.0-2.4) ng/mL CK-MB (CK-2) Rel Index Troponin I (0.000-0.034) ng/mL Total Protein (6.3-8.2) g/dL Albumin (3.5-5.0) g/dL Disposition Clinical Impression: Paresthesia of left arm and leg, Fall Disposition: ADMITTED IP TO THIS HOSP Condition: Good Time of Disposition: 16:12
--- NOTE | 2017-11-12 14:29 | CT ---
EXAMINATION TYPE: CT brain wo con DATE OF EXAM: 11/12/2017 COMPARISON: 11/24/2012 HISTORY: Fall CT DLP: 1090.[address] of the brain was performed. The ventricles, basal cisterns and sulci overlying the cerebral convexities demonstrate mild to moder ate enlargement. Focal calcification left centrum semioval. There is no evidence for intracranial hemorrhage or sulcal effacement. There is decreased attenuation about the periventricular white matter and deep white matter of both c erebral hemispheres, compatible with chronic small vessel ischemia. Differential diagnosis does inclu de demyelination. No mass effects are seen.No midline shift. Osseous calvarium is intact. If symptoms persist consider MRI. IMPRESSION: 1. Age related atrophic and chronic small vessel ischemic change without acute intracranial process s een at this time.
--- NOTE | 2017-11-12 15:15 | XR ---
Left foot HISTORY: Trauma and pain 3 views of the left foot Bone mineralization is reduced which may limit sensitivity. Alignment is maintained. Degenerative alban nges present at the first metatarsophalangeal joint, tarsometatarsal joint of the first digit and int ertarsal joints. Small plantar calcaneus spur noted. There is soft tissue swelling. IMPRESSION: No fracture or dislocation.
--- NOTE | 2017-11-12 15:16 | XR ---
Left femur HISTORY: Trauma and pain 2 views of the left femur submitted in total 5 images Bone mineralization is reduced. Alignment is maintained. Mild arthropathy changes are noted. IMPRESSION: No fracture or dislocation.
--- NOTE | 2017-11-12 15:19 | XR ---
Lumbar spine HISTORY: Trauma and pain 3 views of the lumbar spine Comparison to prior CT abdomen 05/21/2017 Anterior wedging at L1 is noted, loss of height anteriorly of approximately 25% without significant r etropulsion evident. Scoliotic curvature is present as on prior exam. There is multilevel spondylosis . Bone mineralization is reduced. There is multilevel spondylosis. Loss of disc height present at the intervertebral levels with associated vacuum phenomenon. Sclerosis present in the posterior elements of the lower lumbar spine. Difficult to exclude a sacral fracture, correlate. IMPRESSION: L1 anterior wedge compression deformity appears to be an interval finding, correlate. Add itional findings above. If sacral fracture is suspected clinically, additional imaging suggested. Deg enerative disc disease and facet arthropathy, osteopenia. Scoliosis.
--- NOTE | 2017-11-12 15:20 | XR ---
Left leg HISTORY: Trauma and pain 2 views of the left leg No comparisons Bone mineralization is reduced. Alignment and joint spaces are maintained. There are calcifications w ithin the soft tissues. IMPRESSION: No fracture or dislocation is evident.
[2017-11-12 15:29] LABS: Basophils # (A) 0.1 k/uL (0-0.2); Basophils % (A) 1 %; Eosinophils # (A) 0.1 k/uL (0-0.7); Eosinophils % (A) 2 %; HGB 10.9 gm/dL (11.4-16.0); Lymphocytes # (A) 1.6 k/uL (1.0-4.8); Lymphocytes % (A) 23 %; MCH 28.7 pg (25.0-35.0); MCHC 33.2 g/dL (31.0-37.0); MCV 86.6 fL (80.0-100.0); Mean Platelet Volume 7.4; Monocytes # (A) 0.6 k/uL (0-1.0); Monocytes % (A) 8 %; Neutrophils # (A) 4.4 k/uL (1.3-7.7); Neutrophils % (A) 63 %; Platelet Count 225 k/uL (150-450); RBC 3.81 m/uL (3.80-5.40); RDW 13.1 % (11.5-15.5)
[2017-11-12 15:37] LABS: Albumin 4.4 g/dL (3.5-5.0); Calcium 9.4 mg/dL (8.4-10.2); Potassium 4.2 mmol/L (3.5-5.1); Total Bilirubin 0.7 mg/dL (0.2-1.3)
[2017-11-12 15:46] LABS: Partial Thromboplastin Time 26.1 sec (22.0-30.0); Prothrombin Time 10.3 sec (9.0-12.0)
[2017-11-12 15:50] LABS: Creatine Kinase 73 U/L (30-135)
[2017-11-12 16:02] LABS: Creatine Kinase MB 1.6 ng/mL (0.0-2.4); Troponin I <0.012 ng/mL (0.000-0.034)
[2017-11-12] MEDS ORDERED: hydrALAZINE HCL 25 MG TAB PO STA (16:59)
[2017-11-12] MEDS ORDERED: RX INFO: IV CONTRAST WAS GIVEN 1 EACH MISC MISCELLANE PRN (17:48)
[2017-11-12] MEDS ORDERED: ACETAMINOPHEN TAB 325 MG TAB PO STA (17:54)
[2017-11-12] MEDS ORDERED: FUROSEMIDE 20 MG TAB PO SCH (18:00)
--- NOTE | 2017-11-12 18:06 | P.HPIM ---
History of Present Illness Patient is a pleasant 89-year-old female came in after she had a fall about [address] Tolentino Office sent her here as she was comparing of her tingling and numbness in the left side patient was complaining of having bilateral lower limb leg weakness since her fall patient has history of CVA in the past and left -sided weakness chronic about 4/5 strength in left upper and lower extremities. Patient doesn't have any increased weakness rib x-rays and chest x-rays was were ordered by the PCP which did not show any significant abnormality although patient informs me that she was told that she has a refraction the left side. denied any fever chills patient and her nausea vomiting. patient is bilateral has bilateral lower limb tingling numbness more so on the left side and also on the left upper arm area only. Patient is found to have lumbar which compression fracture. My suspicion is low for CVA. But carotid Doppler was is being obtained. Patient had an echocardiogram which was essentially within normal limits. Patient did have history of proximal atrial fibrillation, Carotid Doppler is being obtain as a part of CVA TIA workup. Review of Systems REVIEW OF SYSTEMS: CONSTITUTIONAL: No fever, no malaise, no fatigue. HEENT: No recent visual problems or hearing problems. Denied any sore throat. CARDIOVASCULAR: No chest pain, orthopnea, PND, no palpitations, no syncope. PULMONARY: No shortness of breath, no cough, no hemoptysis. GASTROINTESTINAL: No diarrhea, no nausea, no vomiting, no abdominal pain. Normoactive bowel sounds. NEUROLOGICAL: As mentioned in HPI HEMATOLOGICAL: Denies any bleeding or petechiae. GENITOURINARY: Denies any burning micturition, frequency, or urgency. MUSCULOSKELETAL/RHEUMATOLOGICAL: Denies any joint pain, swelling, or any muscle pain. ENDOCRINE: Denies any polyuria or polydipsia. The rest of the 14-point review of systems is negative. Past Medical History Past Medical History: CVA/TIA, GERD/Reflux, Hypertension Additional Past Medical History / Comment(s): shingles,neuropathy,abcess tooth History of Any Multi-Drug Resistant Organisms: None Reported Past Surgical History: Adenoidectomy, Hysterectomy, Orthopedic Surgery, Tonsillectomy Additional Past Surgical History / Comment(s): left shoulder surgery Past Psychological History: No Psychological Hx Reported Smoking Status: Never smoker Past Alcohol Use History: None Reported Past Drug Use History: None Reported Medications and Allergies Home Medications Medication Instructions Recorded Confirmed Type Clopidogrel Bisulfate [Plavix] 75 mg PO DAILY 05/14/17 11/12/17 History Lisinopril 40 mg PO DAILY 05/14/17 11/12/17 History Metoprolol Tartrate [Lopressor] 12.5 mg PO DAILY 05/14/17 11/12/17 History Pantoprazole Sodium [Protonix] 40 mg PO DAILY 05/14/17 11/12/17 History Nitroglycerin Sl Tabs [Nitrostat] 0.4 mg SUBLINGUAL Q5M PRN tab 05/22/17 Rx hydrALAZINE HCL [Apresoline] 25 mg PO TID #90 tab 05/22/17 11/12/17 Rx Amiodarone [Cordarone] 100 mg PO DAILY 11/12/17 11/12/17 History Furosemide [Lasix] 20 mg PO BID 11/12/17 11/12/17 History Gabapentin [Neurontin] 100 mg PO TID 11/12/17 11/12/17 History Allergies Allergy/AdvReac Type Severity Reaction Status Date / Time No Known Allergies Allergy Verified 11/12/17 13:29 Physical Exam Vitals: Vital Signs Temp Pulse Resp BP Pulse Ox 11/12/17 16:40 56 L 16 193/79 98 11/12/17 15:17 54 L 16 174/81 96 11/12/17 12:47 97.9 F 50 L 16 182/72 97 Intake and Output 11/12/17 11/12/17 11/12/17 06:59 14:59 22:59 Other: Weight 70.307 kg PHYSICAL EXAMINATION: GENERAL: The patient is alert and oriented x3, not in any acute distress. Well developed, well nourished. HEENT: Pupils are round and equally reacting to light. EOMI. No scleral icterus. No conjunctival pallor. Normocephalic, atraumatic. No pharyngeal erythema. No thyromegaly. CARDIOVASCULAR: S1 and S2 present. No murmurs, rubs, or gallops. PULMONARY: Chest is clear to auscultation, no wheezing or crackles. ABDOMEN: Soft, nontender, nondistended, normoactive bowel sounds. No palpable organomegaly. MUSCULOSKELETAL: No joint swelling or deformity. EXTREMITIES: No cyanosis, clubbing, or pedal edema. NEUROLOGICAL: Patient strength in left upper and lower extremities is 4/ 5 strength which is her baseline sensory exam was not SKIN: No rashes. Results CBC & Chem 7: 11/12/17 15:12 11/12/17 15:12 Labs: Abnormal Lab Results - Last 24 Hours (Table) 11/12/17 11/12/17 Range/Units 15:12 15:12 Hgb 10.9 L (11.4-16.0) gm/dL Hct 33.0 L (34.0-46.0) % Sodium 133 L (137-145) mmol/L Chloride 94 L (98-107) mmol/L BUN 26 H (7-17) mg/dL Creatinine 1.05 H (0.52-1.04) mg/dL Assessment and Plan Plan: -Paresthesias of bilateral lower extremity is predominantly in the left lower extremity related to her lumbar spine disease with a compression fracture Will use prednisone for inflammation as her kidney function is borderline for nonsteroidal anti-inflammatories my suspicion is extremely low for CVA or TIA. He and OT will be consulted -History of CVA: Patient had a hemorrhagic stroke in the past but still taking Plavix at home which can be continued I do not believe patient has an ischemic stroke at this time -Altered due to weakness from CVA 1 hypertension patient will be resumed on no medications -hyponatremia secondary to Lasix which will be held and patient will be given 1 L of IV normal saline -Gastroesophageal reflux disease
[2017-11-12] MEDS ORDERED: METOPROLOL TARTRATE 12.5 MG TAB PO STA (18:16)
[2017-11-12] MEDS: GABAPENTIN 100 MG CAP PO SCH (18:29)
[2017-11-12] MEDS: predniSONE 20 MG TAB PO SCH (18:29)
--- NOTE | 2017-11-12 20:48 | P.CNNES ---
History of Present Illness Consult date: 11/12/17 Reason for Consult: Patient with recent fall and bilateral leg numbness. History of Present Illness: This patient is a 89-year-old right-handed white female who apparently sustained a fall at home about 5 days ago and struck her left side. Patient states she had a fall in the bathroom and had to crawl to get help from her daughter who lives with her. Apparently she had some bruising on her left side and was able to get up but continued to experience numbness mostly involving both of her legs. This is occurred only after her fall. She went to see her primary care physician who ordered chest x-ray which she states came back normal as well as rib series which failed to reveal any fracture. Apparently today she noticed the symptoms of numbness was more noticeable to her mostly involving her left leg. She contacted her primary care physician Dr. Tito Tolentino recommended she go to the emergency room for evaluation. She has a history of previous stroke about 5 years ago there was concern due to the sudden changes. She was seen in the ER and was sent for a computed tomography scan of the brain. A CAT scan of the brain revealed age-related atrophy and chronic small vessel ischemic changes. No evidence of acute stroke or hemorrhage. She also had a x-ray of the lumbar spine which revealed her to have L1 anterior wedge compression deformity. We reviewed the results of these 2 studies today with the patient. Patient states she normally gets around fairly well. She is not sure why she sustained a fall in the bathroom 5 days ago. Her biggest concern has been numbness now in both of her legs left greater than right. The patient is undergoing complete stroke evaluation. She completed a carotid Doppler and a echocardiogram results of which are still pending. She is taking Plavix on a regular basis for secondary stroke prevention. We would recommend a orthopedic surgery consultation with Dr. Mcallister for further evaluation of lumbar compression fracture. The patient otherwise seems to have fairly good strength in both upper and lower extremities. She denies any significant numbness in the left upper extremity at this time. It is possible she may have some nerve root irritation due to the compression fracture to L1 level on the plain x-rays. We will await further recommendations from orthopedic surgery. At this time we would recommend a complete stroke evaluation for the patient. Her overall prognosis remains guarded. Review of Systems Constitutional: Denies chills, Denies fever Eyes: denies blurred vision, denies pain Ears, nose, mouth and throat: Denies headache, Denies sore throat Cardiovascular: Denies chest pain, Denies shortness of breath Respiratory: Denies cough Gastrointestinal: Denies abdominal pain, Denies diarrhea, Denies nausea, Denies vomiting Genitourinary: Denies dysuria, Denies hematuria Musculoskeletal: Denies myalgias Integumentary: Denies pruritus, Denies rash Neurological: Reports gait dysfunction, Reports motor disturbance, Reports paresthesias, Reports tingling, Denies numbness, Denies weakness Psychiatric: Denies anxiety, Denies depression Endocrine: Denies fatigue, Denies weight change Past Medical History Past Medical History: CVA/TIA, GERD/Reflux, Hypertension Additional Past Medical History / Comment(s): shingles,neuropathy,abcess tooth History of Any Multi-Drug Resistant Organisms: None Reported Past Surgical History: Adenoidectomy, Hysterectomy, Orthopedic Surgery, Tonsillectomy Additional Past Surgical History / Comment(s): left shoulder surgery Past Psychological History: No Psychological Hx Reported Smoking Status: Never smoker Past Alcohol Use History: None Reported Past Drug Use History: None Reported Medications and Allergies Home Medications Medication Instructions Recorded Confirmed Type Clopidogrel Bisulfate [Plavix] 75 mg PO DAILY 05/14/17 11/12/17 History Lisinopril 40 mg PO DAILY 05/14/17 11/12/17 History Metoprolol Tartrate [Lopressor] 12.5 mg PO DAILY 05/14/17 11/12/17 History Pantoprazole Sodium [Protonix] 40 mg PO DAILY 05/14/17 11/12/17 History Nitroglycerin Sl Tabs [Nitrostat] 0.4 mg SUBLINGUAL Q5M PRN tab 05/22/17 Rx hydrALAZINE HCL [Apresoline] 25 mg PO TID #90 tab 05/22/17 11/12/17 Rx Amiodarone [Cordarone] 100 mg PO DAILY 11/12/17 11/12/17 History Furosemide [Lasix] 20 mg PO BID 11/12/17 11/12/17 History Gabapentin [Neurontin] 100 mg PO TID 11/12/17 11/12/17 History Allergies Allergy/AdvReac Type Severity Reaction Status Date / Time No Known Allergies Allergy Verified 11/12/17 13:29 Physical Examination - Vital Signs Vital Signs: Vital Signs Temp Pulse Resp BP Pulse Ox 11/12/17 18:32 202/85 11/12/17 18:08 98 F 63 16 207/93 98 11/12/17 16:40 56 L 16 193/79 98 11/12/17 15:17 54 L 16 174/81 96 11/12/17 12:47 97.9 F 50 L 16 182/72 97 Intake and Output 11/12/17 11/12/17 11/12/17 06:59 14:59 22:59 Other: Weight 70.307 kg - Constitutional General appearance: average body habitus, cooperative - EENT EENT: PERRL, mucous membranes moist - Respiratory Respiratory: lungs clear, normal breath sounds - Cardiovascular Cardiovascular: regular rate, normal S1, normal S2 Extremities: no peripheral edema bilaterally - Gastrointestinal Gastrointestinal: normoactive bowel sounds - Integumentary Integumentary: normal - Neurologic Cranial nerve examination: PERRL, EOMI, VFF, V1/V2/V3 grossly intact, face symmetric, tongue midline, intact gag reflex, intact corneal reflex, normal palatal elevation Speech examination: intact Sensorimotor examination: intact Motor examination - right side: 4/5: biceps, triceps, wrist flexion, wrist extension, primer supervisor, hip flexors, knee extensors, dorsiflexion, toe extension (EHL) , plantarflexion Motor examination - left side: 4/5: biceps, triceps, wrist flexion, wrist extension, primer supervisor, hip flexors, knee extensors, dorsiflexion, toe extension (EHL) , plantarflexion Detailed sensory examination: intact Reflex and gait examination: intact Reflexes: 1+: ankle, bicep, knee, tricep - Musculoskeletal Musculoskeletal: no pain - Psychiatric Psychiatric: mood/affect appropriate, cooperative Results - Laboratory Findings CBC and BMP: 11/12/17 15:12 11/12/17 15:12 Abnormal Lab Findings: Abnormal Labs 11/12/17 11/12/17 15:12 15:12 Hgb 10.9 L Hct 33.0 L Sodium 133 L Chloride 94 L BUN 26 H Creatinine 1.05 H Assessment and Plan (1) Paresthesia of left arm and leg Current Visit: Yes Status: Acute Code(s): R20.2 - PARESTHESIA OF SKIN SNOMED Code(s): 55382709 (2) Lumbar compression fracture Current Visit: Yes Status: Acute Code(s): S32.000A - WEDGE COMPRESSION FRACTURE OF UNSP LUMBAR VERTEBRA, INIT SNOMED Code(s): 965361885 (3) Fall Current Visit: Yes Status: Acute Code(s): W19.XXXA - UNSPECIFIED FALL, INITIAL ENCOUNTER SNOMED Code(s): 3988016 (4) Syncope Current Visit: No Status: Acute Code(s): R55 - SYNCOPE AND COLLAPSE SNOMED Code(s): 254691637 Plan: This patient is a 89-year-old female who sustained a fall at home 5 days ago onto her left side. Since then she has been experiencing bilateral leg numbness. This was her main reason for referral to the emergency room today. She underwent x-ray of the lumbar spine which reveals L1 anterior wedge compression fracture. We are recommending a orthopedic surgery consultation with Dr. Mcallister for his recommendations. Patient is undergoing complete stroke evaluation. Results of her carotid Doppler ultrasound and echocardiogram are pending. She is to continue on Plavix for secondary stroke prevention. Her last stroke occurred about 5 years ago. The patient otherwise seems to be doing quite well with no other neurological deficit. Muscle strength seems to be preserved in both lower extremities. We will continue close neurological follow-up with the patient during this admission. Time with Patient: Greater than 30
--- NOTE | 2017-11-12 21:36 | US ---
EXAMINATION TYPE: US carotid duplex BILAT DATE OF EXAM: 11/12/2017 COMPARISON: 11/24/2012 CLINICAL HISTORY: Stenosis. Stenosis EXAM MEASUREMENTS: RIGHT: Peak Systolic Velocity (PSV) cm/sec ----- Right CCA: 101.6 ----- Right ICA: 82.2 ----- Right ECA: 82.2 ICA/CCA ratio: 0.8 RIGHT: End Diastole cm/sec ----- Right CCA: 19.2 ----- Right ICA: 14.4 ----- Right ECA: 0 LEFT: Peak Systolic Velocity (PSV) cm/sec ----- Left CCA: 74.1 ----- Left ICA: 79.0 ----- Left ECA: 85.4 ICA/CCA ratio: 1.1 LEFT: End Diastole cm/sec ----- Left CCA: 17.6 ----- Left ICA: 19.2 ----- Left ECA: 0 VERTEBRALS (direction of flow): Right Vertebral: Antegrade Left Vertebral: Antegrade Rhythm: Normal No significant stenosis seen IMPRESSION: There is antegrade flow in the vertebral arteries. Images and measurements suggest 25% s tenosis in both internal carotid arteries. No adverse change compared to old exam. Criteria for Assigning % of Stenosis / Diameter reduction (Estimation based on the indirect measurements of the internal carotid artery velocities (ICA PSV). 1. Normal (no stenosis)=ICA PSV < 125 cm/s: ratio < 2.0: ICA EDV<40 cm/s. 2. Less than 50% stenosis=ICA PSV < 125 cm/s: ratio < 2.0: ICA EDV<40 cm/s. 3. 50 to 69% stenosis=ICA PSV of 125 to 230 cm/s: ration 2.0 ? 4.0: ICA EDV 40-100 cm/s. 4. Greater than 70% stenosis to near occlusion= ICA PSV > 230 cm/s: ratio > 4.0: ICA EDV > 100 cm/s. 5. Near occlusion= ICA PSV velocities may be low or undetectable: variable ratio and ICA EDV. 6. Total occlusion=unable to detect flow.
[2017-11-12] MEDS: ACETAMINOPHEN TAB 325 MG TAB PO PRN (22:47)
[2017-11-12] MEDS: SODIUM CHLORIDE 0.9% 1,000 ML IV SCH (22:54)
[2017-11-12] MEDS: hydrALAZINE HCL 25 MG TAB PO SCH (23:33)
[2017-11-13 07:47] LABS: HCT 28.4 % (34.0-46.0); MCHC 35.1 g/dL (31.0-37.0); MCV 85.5 fL (80.0-100.0); Mean Platelet Volume 6.9; Platelet Count 229 k/uL (150-450); RBC 3.33 m/uL (3.80-5.40); RDW 12.8 % (11.5-15.5); WBC 4.4 k/uL (3.8-10.6)
[2017-11-13 08:07] LABS: Calcium 8.9 mg/dL (8.4-10.2); Potassium 3.8 mmol/L (3.5-5.1)
[2017-11-13] MEDS ORDERED: CLOPIDOGREL 75 MG TAB PO SCH (09:00)
[2017-11-13] MEDS ORDERED: PANTOPRAZOLE 40 MG TABLET PO SCH (09:00)
[2017-11-13] MEDS ORDERED: METOPROLOL TARTRATE 12.5 MG TAB PO SCH (09:00)
[2017-11-13] MEDS ORDERED: AMIODARONE 100 MG TAB PO SCH (09:00)
[2017-11-13] MEDS ORDERED: LISINOPRIL 20 MG TAB PO SCH (09:00)
[2017-11-13] MEDS: predniSONE 20 MG TAB PO SCH (09:10)
[2017-11-13] MEDS: GABAPENTIN 100 MG CAP PO SCH (09:10)
[2017-11-13] MEDS: hydrALAZINE HCL 25 MG TAB PO SCH (09:10)
--- NOTE | 2017-11-13 09:27 | P.HPOR ---
History of Present Illness H&P Date: 11/13/17 Chief Complaint: Low back pain The patient is a very pleasant 89-year-old female who had an increase in her low back and rib pain over the past 5 days. She had a fall about 5 days ago and felt paresthesias in her upper and lower extremities weakness globally. She feels that she is doing much better now. She is not having any pain in her upper or lower extremity is at this point. She feels that her mobility is improving significantly. She has some tenderness at her low back and around her left side toward her ribs but is able to mobilize adequately. She denies any shortness breath or chest pain. She denies any dizziness or vertigo. Review of Systems Denies nausea vomiting. Denies any chest pain shortness breath or weakness. Denies any changes in her lower extremities at this point. She feels strongly at her upper and lower extremities today. Past Medical History Past Medical History: CVA/TIA, GERD/Reflux, Hypertension Additional Past Medical History / Comment(s): shingles,neuropathy,abcess tooth History of Any Multi-Drug Resistant Organisms: None Reported Past Surgical History: Adenoidectomy, Hysterectomy, Orthopedic Surgery, Tonsillectomy Additional Past Surgical History / Comment(s): left shoulder surgery Past Anesthesia/Blood Transfusion Reactions: No Reported Reaction Past Psychological History: No Psychological Hx Reported Smoking Status: Never smoker Past Alcohol Use History: None Reported Past Drug Use History: None Reported - Past Family History Mother Additional Family Medical History / Comment(s): HEART TROUBLE Father Family Medical History: Cancer Additional Family Medical History / Comment(s): HEART TROUBLE Medications and Allergies Home Medications Medication Instructions Recorded Confirmed Type Clopidogrel Bisulfate [Plavix] 75 mg PO DAILY 05/14/17 11/12/17 History Lisinopril 40 mg PO DAILY 05/14/17 11/12/17 History Metoprolol Tartrate [Lopressor] 12.5 mg PO DAILY 05/14/17 11/12/17 History Pantoprazole Sodium [Protonix] 40 mg PO DAILY 05/14/17 11/12/17 History Nitroglycerin Sl Tabs [Nitrostat] 0.4 mg SUBLINGUAL Q5M PRN tab 05/22/17 Rx hydrALAZINE HCL [Apresoline] 25 mg PO TID #90 tab 05/22/17 11/12/17 Rx Amiodarone [Cordarone] 100 mg PO DAILY 11/12/17 11/12/17 History Furosemide [Lasix] 20 mg PO BID 11/12/17 11/12/17 History Gabapentin [Neurontin] 100 mg PO TID 11/12/17 11/12/17 History Allergies Allergy/AdvReac Type Severity Reaction Status Date / Time No Known Allergies Allergy Verified 11/12/17 13:29 Physical Examination Osteopathic Statement: *. No significant issues noted on an osteopathic structural exam other than those noted in the History and Physical/Consult. Results X-rays of her lumbar spine reviewed. She has evidence of a compression deformity at L1 with about 25% height loss. She has some osteopenia and some degenerative changes in her lower lumbar spine. The compression fracture is a new finding compared to her computed tomography scan from her abdomen and pelvis in May 2017 - Labs Labs: Abnormal Lab Results - Last 24 Hours (Table) 11/12/17 11/12/17 11/13/17 Range/Units 15:12 15:12 06:58 RBC (3.80-5.40) m/uL Hgb 10.9 L (11.4-16.0) gm/dL Hct 33.0 L (34.0-46.0) % Sodium 133 L (137-145) mmol/L Chloride 94 L 97 L (98-107) mmol/L BUN 26 H 24 H (7-17) mg/dL Creatinine 1.05 H (0.52-1.04) mg/dL Glucose 104 H (74-99) mg/dL 11/13/17 Range/Units 06:58 RBC 3.33 L (3.80-5.40) m/uL Hgb 10.0 L (11.4-16.0) gm/dL Hct 28.4 L (34.0-46.0) % Sodium (137-145) mmol/L Chloride (98-107) mmol/L BUN (7-17) mg/dL Creatinine (0.52-1.04) mg/dL Glucose (74-99) mg/dL H & H 11/12/17 11/13/17 Range/Units 15:12 06:58 Hgb 10.9 L 10.0 L (11.4-16.0) gm/dL Hct 33.0 L 28.4 L (34.0-46.0) % Coagulation 11/12/17 Range/Units 15:12 INR 1.0 (<1.2) Result Diagrams: 11/13/17 06:58 11/13/17 06:58 Assessment and Plan Assessment: Acute compression fracture L1 with approximately 25% height loss Status post fall Improving pain and mobility Plan: Acute compression fracture L1 due to a fall 5 days ago with approximately 25% compression without neurologic change or loss from her spine Low back pain Status post fall Osteopenia The patient is making good progress in terms of her mobility and pain control. I discussed the injury with her at L1 and I feel that this fracture at L1 is directly due to the fall that she had 5 days ago. I discussed different treatment options with her ranging from conservative with bracing or observation versus possibly surgical intervention. We discussed the use of brace and the patient declined using a brace at this point. She feels that she is making adequate progress and would like to try to see how she does without bracing at this point. I think that is reasonable for her as this can go on to heal quite well with conservative and expectant management and observation. I do not plan any surgical intervention for her at this point but I would like to see her back as an outpatient after her hospitalization in approximately 3 weeks for recheck evaluation and follow-up on the fracture. I discussed this with her answered her questions best my ability and she is agreeable to plan. We will see her again as an outpatient.
[2017-11-13] MEDS: ACETAMINOPHEN TAB 325 MG TAB PO PRN (12:08)
[2017-11-13] MEDS: SODIUM CHLORIDE 0.9% 1,000 ML IV SCH (12:09)
[2017-11-13 16:31] VITALS: BP 145/71; PULSE 55; RESP 16; TEMP 97.2
--- NOTE | 2017-11-13 21:47 | ECHOF ---
Referral Reason: MEASUREMENTS -------- HEIGHT: 172.7 cm WEIGHT: 73.0 kg BP: 160/69 IVSd: 2.1 cm (0.6 - 1.1) LVIDd: 3.8 cm (3.9 - 5.3) LVPWd: 1.9 cm (0.6 - 1.1) IVSs: 2.4 cm LVIDs: 1.9 cm LVPWs: 2.6 cm Ao Diam: 2.9 cm (2.0 - 3.7) AV Cusp: 1.3 cm (1.5 - 2.6) LA Diam: 3.7 cm (2.7 - 3.8) MV EXCURSION: 14.230 mm (> 18.000) MV EF SLOPE: 103 mm/s (70 - 150) EPSS: 0.3 cm MV E Willard: 0.75 m/s MV DecT: 171 ms MV A Willard: 1.17 m/s MV E/A Ratio: 0.65 AV maxP.35 mmHg AV meanP.78 mmHg AR PHT: 621 ms RAP: 5.00 mmHg RVSP: 22.74 mmHg FINDINGS -------- Sinus rhythm. This was a technically adequate study. The left ventricular size is normal. There is severe concentric left ventricular hypertrophy. Ove rall left ventricular systolic function is normal with, an EF between 55 - 60 %. The right ventricle is normal in size and function. The left atrium is normal in size. The right atrium is normal in size. Aortic valve is trileaflet and is moderately thickened. There is mild aortic regurgitation. There is mild aortic stenosis present. Peak/mean gradient across the Aortic Valve is 23.35mmHg / 15.78mm Hg. The mitral valve leaflets are mildly thickened. Mild mitral annular calcification present. Mild m itral regurgitation is present. Mild tricuspid regurgitation present. The right ventricular systolic pressure, as measured by Doppl er, is 22.74mmHg. Pulmonic valve appears structurally normal. The aortic root size is normal. The pericardium is normal. CONCLUSIONS -------- 1. Sinus rhythm. 2. This was a technically adequate study. 3. The left ventricular size is normal. 4. There is severe concentric left ventricular hypertrophy. 5. Overall left ventricular systolic function is normal with, an EF between 55 - 60 %. 6. The right ventricle is normal in size and function. 7. The left atrium is normal in size. 8. The right atrium is normal in size. 9. Aortic valve is trileaflet and is moderately thickened. 10. There is mild aortic regurgitation. 11. There is mild aortic stenosis present. 12. Peak/mean gradient across the Aortic Valve is 23.35mmHg / 15.78mmHg. 13. The mitral valve leaflets are mildly thickened. 14. Mild mitral annular calcification present. 15. Mild mitral regurgitation is present. 16. Mild tricuspid regurgitation present. 17. The right ventricular systolic pressure, as measured by Doppler, is 22.74mmHg. 18. Pulmonic valve appears structurally normal. 19. The aortic root size is normal. 20. The pericardium is normal. SENIOR FRONT END ENGINEER: Blanca Card RDCS
--- NOTE | 2017-11-14 08:34 | DS ---
DISCHARGE SUMMARY DATE OF SERVICE: 11/13/2017. FINAL DIAGNOSES: 1. Bilateral leg paresthesia, possibly secondary to lumbar degenerative joint disease. 2. Left-sided chest pain, possible secondary to fracture. 3. History of cerebrovascular accident. 4. Hypertension. 5. Hyponatremia. 6. Gastroesophageal reflux disease. RECOMMENDATION OF DISCHARGE: The patient will be discharged in a stable condition with guarded prognosis. HISTORY OF PRESENT ILLNESS: This 89-year-old woman with a past medical history of multiple medical problems was admitted with lumbar compression fracture and as well as fall. The patient was monitored closely and lumbar spine x-rays showed L1 anterior wedge fracture. Orthopedic Surgery saw the patient. On physical exam, vitals are stable. CARDIOVASCULAR: S1, S2. ABDOMEN: Soft. NERVOUS SYSTEM: Patient improved significantly. DIET: Cardiac. Activity limited until followup. Follow up with Dr. Tolentino in 2 to 3 days. Follow up in our Neurology and Dr. Mcallister as advised. MEDICATIONS: 1. Tylenol 650 q.8 p.r.n. 2. Cordarone 100 mg p.o. daily. 3. Plavix 75 mg p.o. daily. 4. Lasix 20 mg p.o. b.i.d. 5. Neurontin 100 mg p.o. t.i.d. 6. Apresoline 25 mg p.o. t.i.d. 7. [place] 5 mg p.o. q.6 p.r.n. 8. Lisinopril 40 mg p.o. daily. 9. Lopressor 12.5 mg p.o. daily. 10.Nitrostat 0.4 mg p.r.n. 11.Protonix 40 mg p.o. daily. 12.Prednisone taper, that is prednisone taper will be 20 mg daily for 4 days, 10 mg for 4 days and then stop. MMODL / IJN: [id number] / MTDD
== END 2017-11-13 16:43 | disposition home or self-care (01) ==
LOC: EC 11:58 → 6SEL 15:48
PROVIDERS: ADMIT Hospitalist; ATTEND Hospitalist
DX: R20.2 Paresthesia of skin (principal); I65.23 Occlusion and stenosis of bilateral carotid arteries; M48.56XA Collapsed vertebra, not elsewhere classified, lumbar region, initial encounter for fracture; M47.9 Spondylosis, unspecified; M85.88 Other specified disorders of bone density and structure, other site; R07.89 Other chest pain; I69.354 Hemiplegia and hemiparesis following cerebral infarction affecting left non-dominant side; G62.9 Polyneuropathy, unspecified; I48.0 Paroxysmal atrial fibrillation; K21.9 Gastro-esophageal reflux disease without esophagitis; I10 Essential (primary) hypertension; E87.1 Hypo-osmolality and hyponatremia; T50.1X5A Adverse effect of loop [high-ceiling] diuretics, initial encounter; W19.XXXA Unspecified fall, initial encounter; Y92.009 Unspecified place in unspecified non-institutional (private) residence as the place of occurrence of the external cause; Z79.02 Long term (current) use of antithrombotics/antiplatelets; Z79.899 Other long term (current) drug therapy; Z86.19 Personal history of other infectious and parasitic diseases; Z80.9 Family history of malignant neoplasm, unspecified; Z82.49 Family history of ischemic heart disease and other diseases of the circulatory system
CPT/HCPCS: 99285 ×2; 36415; 93005; 93306; 97162; 97166; 80061; 80053; 80048; 82550; 82553; 84484; 85025; 85027; 85610; 85730; 72100; 73552; 73590; 73630; 93880; 70450; G0378 ×2; J7512 ×2

== ENCOUNTER → 2017-11-17 | Outpatient (CLI) | payer MEDICARE ==
[2017-11-17 12:48] LABS: Basophils % (A) 0 %; Eosinophils % (A) 0 %; HCT 32.8 % (34.0-46.0); HGB 11.3 gm/dL (11.4-16.0); Lymphocytes # (A) 1.2 k/uL (1.0-4.8); Lymphocytes % (A) 11 %; MCH 29.6 pg (25.0-35.0); MCHC 34.4 g/dL (31.0-37.0); Mean Platelet Volume 6.6; Monocytes # (A) 0.8 k/uL (0-1.0); Monocytes % (A) 8 %; Neutrophils % (A) 78 %; Platelet Count 356 k/uL (150-450); RBC 3.81 m/uL (3.80-5.40); WBC 10.2 k/uL (3.8-10.6)
[2017-11-17 12:59] LABS: Calcium 9.6 mg/dL (8.4-10.2); Potassium 4.2 mmol/L (3.5-5.1)
== END | disposition home or self-care (01) ==
LOC: LABWHC1 12:23
PROVIDERS: ATTEND Nurse Practitioner
DX: I10 Essential (primary) hypertension (principal)
CPT/HCPCS: 36415; 80048; 85025